=== PATIENT | male | born 1990 | race Caucasian/White ===

== ENCOUNTER 2017-03-18 09:21 | Emergency (ER) | payer OTHER ==
[~2017-03-18] VITALS: Ht 167.6 cm; Wt 81.2 kg
[2017-03-18] MEDS ORDERED: AMOX TR-K CLV1 EAC1 PO (09:29)
[2017-03-18] MEDS ORDERED: CIPRO HC OTIC S10 ML AD (09:45)
[2017-03-18] MEDS ORDERED: CIPRO500 MG PO (09:45)
== END 2017-03-18 09:54 | disposition home or self-care (01) ==
LOC: ED 09:21
DX: H60.91 Unspecified otitis externa, right ear (principal); F17.200 Nicotine dependence, unspecified, uncomplicated; Z88.6 Allergy status to analgesic agent; Z79.899 Other long term (current) drug therapy
CPT/HCPCS: 99283

== ENCOUNTER 2021-07-18 09:49 | Emergency (ER) | payer SELFPAY ==
[~2021-07-18] VITALS: Ht 167.6 cm; Wt 81.2 kg
[~2021-07-18 09:49] MED LIST: AMOX TR-K CLV1 EAC1 PO; CIPRO HC OTIC S10 ML AD; CIPRO500 MG PO
[2021-07-18] MEDS ORDERED: LEVOFLOXACIN750 MG PO (10:41)
== END 2021-07-18 11:45 | disposition home or self-care (01) ==
LOC: ED 09:49
DX: N41.9 Inflammatory disease of prostate, unspecified (principal); F17.200 Nicotine dependence, unspecified, uncomplicated; Z88.8 Allergy status to other drugs, medicaments and biological substances
CPT/HCPCS: 81001; 99284

== ENCOUNTER 2021-07-21 03:47 | Inpatient (IN) | payer OTHER ==
[~2021-07-21] VITALS: Ht 167.6 cm; Wt 92.9 kg
--- NOTE | ~2021-07-21 | DS ---
[facility] [address], [place] [address] Draft ADMISSION DATE: 07/21/2021 DISCHARGE DATE: 07/31/2021 REASON FOR ADMISSION: Perforated diverticulitis with pelvic abscess. HISTORY OF PRESENT ILLNESS: This 30-year-old white man presented to the emergency room on July 21, 2021 with recurrent and persistent pelvic pain. He had been seen in the emergency room on July 18 and thought to have prostatitis by Dr. Bhagat. He was treated with Levaquin with no clinical improvement. He re-presented to the emergency room once again on July 21 without nausea, but did have vomiting and a fair amount of abdominal pain in the left lower abdomen. A CT scan was performed confirming a pericolonic inflammatory process suggestive of acute diverticulitis despite his young age. There appeared to be pericolonic stranding and a small amount of extraluminal air. His white count was elevated to 15.7 and hematocrit 42.5 with platelets of 389,000. He is admitted for further evaluation and care. PERTINENT PHYSICAL EXAMINATION: GENERAL: Showed a pleasant white man who looked older than 30 years. VITAL SIGNS: Temperature is 97.8, pulse 115, blood pressure 120/86, O2 saturation 90% on 1 L nasal cannula. CHEST: Clear. HEART: Regular without murmur. ABDOMEN: Mildly distended and quite markedly tender in the left side, but also tender in the right lower and upper abdomen. LAB STUDIES: Are as previously noted. COVID serology was negative. HOSPITAL COURSE: He was admitted and given intravenous antibiotic cefoxitin on the basis of acute diverticulitis. His pain was rather significant and not all that much improved. Indeed, his white count increased. He was given intravenous morphine in addition to non-opiate medication. His pain persisted and in some ways worsened. He had some right-sided abdominal pain including right upper abdomen for which concern was maintained for possible biliary disease. A CT scan had been reviewed showing a normal-appearing gallbladder without distention or stones. Continued IV antibiotics were maintained. A CT scan was repeated on July 24 showing fluid in the left lower quadrant but also in interloop areas. It is deemed PATIENT NAME: LEONARDO ACOSTA DISCHARGE SUMMARY DATE OF : [birth year] REPORT #: [id number] PHYSICIAN: KORI FLORES MD PCP: PANTERA YAO MD REPORT IS CONFIDENTIAL AND NOT TO BE RELEASED WITHOUT AUTHORIZATION [facility] [address], [place] [address] Draft probable considering his lack of progress in improvement of his symptoms as process may be more advanced than initially thought. A gallbladder ultrasound had been performed which showed no sign of stones or gallbladder wall thickening, particularly. By July 25, given his lack of progress, I recommended operative intervention to include laparoscopy with probable lavage of the peritoneal cavity and placement of drain. On July 21, he underwent laparoscopy with attempts at the aforementioned approach. However, interloop adhesions were densely adherent with fibrinous peel and this was completely not amenable to a laparoscopic approach. On that basis, a laparotomy was performed allowing for drainage of a pelvic abscess. He additionally underwent sigmoid resection with end colostomy. All of this was prolonged, complicated, and difficult due to the extent of inflammation and his abdominal wall obesity. He is maintained with a nasogastric tube in the immediate postoperative period. His ostomy took a few days to fully function. TAP blocks were placed bilaterally at conclusion of operation, but were only minimally beneficial in control of his pain. He was begun on a MANUFACTURING QUALITY MANAGER with morphine which was somewhat better tolerated. He did have progressive improvement ultimately allowing for nasogastric tube removal on July 26 and removal of his Rush catheter as well. A drain placed in the pelvis showed no sign of purulent drainage. With time, his ostomy did begin to function and he was able to tolerate a regular diet. By day of discharge, he is ambulating well, tolerating a regular diet. The drain has been removed. The incision is healing well and he has good output from his ostomy. The pathology report confirmed perforated diverticulitis. No evidence of neoplasm proper. The patient is discharged to home anticipating change of his ostomy on a routine basis. Ostomy supplies include: 1. [place] [employer]afers #[id number]. 2. as well as other supplies needed for ostomy maintenance. FOLLOWUP PLAN: He is to return to see me in approximately 4 weeks or so. It will be at least three months before takedown of the colostomy would be considered. DISCHARGE MEDICATIONS: Include: 1. Cipro 500 mg p.o. b.i.d., #10. 2. Flagyl 250 mg p.o. t.i.d., #15. 3. Tylenol plain 500 mg two tablets p.o. q.6 as needed for pain, #60. 4. Pantoprazole 40 mg p.o. daily #30, refill 1. 5. Percocet 7.5/325 1-2 p.o. q.6 hours p.r.n. pain, #20. PATIENT NAME: LEONARDO ACOSTA DISCHARGE SUMMARY DATE OF : [birth year] REPORT #: [id number] PHYSICIAN: OKRI FLORES MD PCP: PANTERA YAO MD REPORT IS CONFIDENTIAL AND NOT TO BE RELEASED WITHOUT AUTHORIZATION [facility] [address] [address] Draft DISCHARGE DIAGNOSES: 1. Perforated sigmoid diverticulitis with pelvic abscess. 2. Status post laparoscopy with conversion to open sigmoid resection, drainage of pelvic abscess and end colostomy (Santi's procedure with mobilization of splenic flexure. 3. Obesity. MD NEO Mast/NANCY /[id number] cc: MD Dr. Aleida Mock Copies: VANCE HOWARD MD ~ PATIENT NAME: LEONARDO ACOSTA DISCHARGE SUMMARY DATE OF : [birth year] REPORT #: [id number] PHYSICIAN: KORI FLORES MD PCP: PANTERA YAO MD REPORT IS CONFIDENTIAL AND NOT TO BE RELEASED WITHOUT AUTHORIZATION
--- NOTE | ~2021-07-21 | OR ---
[facility] [address] [place], [place] [address] Draft DATE OF OPERATION: 07/21/2021 SURGEON: Kori Flores MD PREOPERATIVE DIAGNOSES: 1. Perforated sigmoid diverticulitis without improvement antibiotic therapy. 2. Morbid obesity. POSTOPERATIVE DIAGNOSES: 1. Pelvic abscess secondary to perforated sigmoid diverticulitis. 2. Obesity. PROCEDURES: 1. Laparoscopy with lavage of the peritoneal cavity. 2. Conversion to open laparotomy with drainage of pelvic abscess. 3. Sigmoid resection with end colostomy (prolonged, difficult (Santi's procedure). 4. Mobilization of splenic flexure. ANESTHESIA: General endotracheal, Mariya Schwartz CRNA INDICATIONS: This 30-year-old white man has had over two weeks of lower abdominal pain and spasm type symptoms. He was seen in the emergency room at approximately the 19 of July and considered to have possible prostatitis. He returned to the ER on July 21, [address] scan of the abdomen showed what was probable sigmoid diverticulitis with possible small amounts of extraluminal air. He was not systemically toxic particularly. His white count was somewhat elevated at 16,000. On the basis of his clinical appearance, he was admitted to the hospital, given intravenous antibiotics and closely monitored. He initially was improving but yesterday became more problematic with generalized findings of abdominal pain. A CT scan was performed late yesterday, which shows worsening of the inflammatory process in the rectosigmoid area. Although he did not have generalized free air, he certainly did have fluid collection throughout the abdomen. On that basis, I have recommended laparoscopy, probable lavage and placement of drain for perforated diverticulitis or other indicated procedures. The patient understands the risk of bleeding, infection, and inadequacy of a laparoscopic approach requiring open procedure and of course a possibility of sigmoid PATIENT NAME: LEONARDO ACOSTA OPERATIVE REPORT DATE OF : [birth year] REPORT #: [id number] PHYSICIAN: KORI FLORES MD PCP: NO PRIMARY CARE PHYSICIAN REPORT IS CONFIDENTIAL AND NOT TO BE RELEASED WITHOUT AUTHORIZATION [facility] [address] [place], [place] [address] Draft resection requiring ostomy either ileostomy, primary anastomosis could be performed or colostomy. Understanding all this, he wished to proceed. FINDINGS: Upon laparoscopy, he was noted to have dense fibrinous adhesions between small bowel loops. Despite very extensive efforts, full mobility of the small bowel, better visibility of the sigmoid and so forth could not be undertaken, on that basis conversion open operation was required. He was noted to have a dense phlegmonous mass of the rectosigmoid with a coil spring appearance of the rectosigmoid and a pelvic abscess. Mobility of the sigmoid was ultimately able to be accomplished allowing for Santi's procedure (sigmoid resection with end colostomy). Given his significant abdominal wall obesity, he did require mobilization of splenic flexure. Maturation of colostomy was able to be performed despite his thick abdominal wall pannus. DESCRIPTION OF PROCEDURE: The patient was brought to the operating room, given a general endotracheal anesthetic. The patient has been on meropenem antibiotic. A Rush catheter was placed. The abdomen was rather distended and obese as well as distended from underlying pathologic problem. The abdomen was clipped and prepared with a chlorhexidine solution and draped sterilely. Infraumbilical incision was made noting considerable abdominal wall edema and watery fluid. The abdomen was ultimately entered and using an open Mikki cannula technique pneumoperitoneum was achieved to a level of 14 mmHg of carbon dioxide gas. Intra-abdominal inspection showed inflammatory changes throughout the abdomen and dense fibrinous peel, particularly on the right side between small bowel loops. Epigastric port was placed and cannula replaced to that site in single hand manipulation with a grasper undertaken breaking up some loculations. Actual source of the problem was considered likely to be the sigmoid, though this was not certain. On that basis, position around the operating table was changed and a right lower quadrant 5 mm port was placed and using two hand manipulation orientation to the left lower abdomen was undertaken. There was dense fibrinous peel in this area. No sign of karissa stool egress from the colon or anything of that sort, but given his distended loops of bowel, his plethoric nature and so forth, one could not really get a good visualization of the process and finally it was deemed advisable simply to convert to open operation. The trocars were removed under direct visualization showing no sign of bleeding. The infraumbilical incision was made through the thick abdominal wall pannus, which was approximately 10-12 cm in thickness. Midline fascia was incised and the abdomen entered. Inflammatory fluid was noted throughout. A Bookwalter retractor was affixed to the table. An incision was taken cephalad when it was clear that isolation of the intra-abdominal viscera was not possible maintaining the small incision. The small bowel was packed to the right side of the abdomen after breaking up the interloop fibrinous adhesions. Clearly the offending organ was out of the sigmoid PATIENT NAME: LEONARDO ACOSTA OPERATIVE REPORT DATE OF : [birth year] REPORT #: [id number] PHYSICIAN: KORI FLORES MD PCP: NO PRIMARY CARE PHYSICIAN REPORT IS CONFIDENTIAL AND NOT TO BE RELEASED WITHOUT AUTHORIZATION [address] [place], [place] [address] Draft colon. A dense vulcanized rubber like consistency of the sigmoid mesentery was noted with fibrinous peel and egress of purulent material. This was Gram stain and cultured. Further dissection in the pelvis showed a coiled spring like configuration of the rectosigmoid with marked distortion. Using blunt dissection in the depths of the pelvis, rectum could be freed from surrounding tissue. It is quite clear that a very advanced and probably rather chronic with acute exacerbation of inflammatory process was present. Sigmoid resection with end colostomy was deemed most advisable approach, particularly given the density and inflammation of the rectum. White line of Toldt was mobilized with electrocautery. Mesenteric blood vessels of the sigmoid were secured with tonsil clamps or clips as appropriate. A normal-appearing segment of colon in the distal descending colon was transected with a VIKTOR stapling device allowing for further dissection inferiorly. So as to avoid excessive resection of rectum at this time, mindful that reanastomosis would one day be undertaken, an appropriate level of upper to mid rectum was identified and the dense inflammatory fatty layer divided with electrocautery. A VIKTOR stapling device was used to transect the rectum ultimately explanting the rectosigmoid in total. The specimen was opened on the back table and found to have no evidence of actual malignancy, only inflammatory change of the mesentery in the wall of the colon. Irrigation was undertaken in the area and the abdomen then irrigated with saline solution. This area was then temporarily packed with gauze. The patient's thick abdominal wall pannus would make passage for a colostomy rather challenging but even more so for an ileostomy. The distal segment of the rectum was not reliably free of inflammation to even do the anastomosis at this point. Formation of an end colostomy was deemed most advisable. The white line of Toldt was further incised and using blunt electrocautery dissection, the splenic flexure was mobilized allowing for a generous segment of descending colon to pass through the abdominal wall. In the left lateral abdominal wall, deemed appropriate for ostomy and portion of skin was grasped with a Shanelle clamp and incised with a 20 blade. Dissection was carried through the subcutaneous tissue. The external oblique fascia was incised as was the rectus sheath fascia. The rectus muscles were with a heavy clamp and the clamp was passed through the peritoneal cavity. The aperture for passage of the ostomy was increased in size. Ultimately, the left colon could be insinuated through the proposed ostomy site where it lay until at conclusion of procedure for maturation. Irrigation was undertaken in the anterior abdominal area and inflammatory fluid in the PATIENT NAME: LEONARDO ACOSTA OPERATIVE REPORT DATE OF : [birth year] REPORT #: [id number] PHYSICIAN: KORI FLORES MD PCP: NO PRIMARY CARE PHYSICIAN REPORT IS CONFIDENTIAL AND NOT TO BE RELEASED WITHOUT AUTHORIZATION [facility] [address] [place], [place] [address] Draft upper abdomen suctioned free after irrigation as well. Hemostasis was assured in the pelvis. Through a separate stab incision, a 7 mm flat Zack drain was placed in the pelvis and secured the skin with nylon suture. The small bowel loops were allowed to be returned to a natural anatomic position but admittedly were somewhat dilated, though only moderately thickened. The omentum was placed in the intra-abdominal contents and midline fascia was reapproximated with running bidirectional #1 PDS suture with interrupted #1 PDS suture for internal retention sutures. The subcutaneous space was irrigated fully and the skin closed with stapling device. The trocar sites were similarly closed. Attention was then turned towards maturation of the colostomy. The mucosa appeared slightly congested, but not ischemic per se. The colostomy was matured with interrupted 3-0 Vicryl suture. The index finger was passed down the ostomy through the abdominal wall, showing no sign of problematic angulation issues. An ostomy appliance was applied to that site and an Acticoat dressing applied to the midline fascia and the area of the drain exit site. The patient was ultimately given TAP blocks bilaterally by the channel executive for postoperative analgesic benefit. He was ultimately extubated, taken to recovery room in good condition having suffered no known complications. Blood loss was estimated in aggregate 200 mL. Operation was very prolonged, complicated, and difficult based on the extent of inflammation, his obesity and so forth lasting until approximately 9:00 p.m. Kori Flores MD JM/MODL /[id number] cc: Xavier Fernández MD Copies: XAVIER FERNÁNDEZ MD ~ PATIENT NAME: LEONARDO ACOSTA OPERATIVE REPORT DATE OF : [birth year] REPORT #: [id number] PHYSICIAN: KORI FLORES MD PCP: NO PRIMARY CARE PHYSICIAN REPORT IS CONFIDENTIAL AND NOT TO BE RELEASED WITHOUT AUTHORIZATION
[~2021-07-21 03:47] MED LIST changes: +LEVOFLOXACIN750 MG PO
--- OUTSIDE RECORDS SUMMARY | 2021-07-21 03:54 | XMS ---
PreManage Notification: LEONARDO ACOSTA Security People Greeter Events No recent Security Events currently on file CRITERIA MET - [facility] - 2 Visits in 30 Days CARE PROVIDERS There are no care providers on record at this time. Jj has no Care Guidelines for this patient. Z[facility] (12 MO.) [facility] NOTE: Visits indicate total known visits. ED/C VISIT TRACKING (12 MO.) 07/21/2021 03:[address] [facility] [place] TYPE: Emergency COMPLAINT: - ABD PAIN 07/18/2021 09:[address] [facility] [place] TYPE: Emergency COMPLAINT: - POSS UTI DIAGNOSES: - Allergy status to other drugs, medicaments and biological substances - Inflammatory disease of prostate, unspecified - Allergy status to narcotic agent - Nicotine dependence, unspecified, uncomplicated - Lower abdominal pain, unspecified INPATIENT VISIT TRACKING (12 MO.) No inpatient visits to display in this time frame [email or web address]
--- NOTE | 2021-07-21 07:20 | NUR ---
0650 pt ARRIVED TO ROOM. AMBULATED FROM STRETCHER TO BED. URINATED AT THE BEDSIDE. SAMPLE SENT. CLEAR YELLOW URINE. INTAKE COMPLETED. pt PROVIDED WITH ORAL SWABS. IVF AND IV ANTIBIOTICS COMPLETED, SL IV. PAIN 12/22. ORIENTED TO ROOM. CALL LIGHT WITHIN REACH.
--- NOTE | 2021-07-21 07:30 | NUR ---
this rn received report from pratibha pierce and manuel pierce. pt states that he has pain 6/10 but is thirsty, this rn does not have an order for diet at this time.
--- NOTE | 2021-07-21 07:40 | NUR ---
verbal report given to dayshift stan recinos at bedside. pt reports increased pain, stan recinos to complete remaining portion of admission and hang iv fluids, pain meds, ect. call light in reach.
--- NOTE | 2021-07-21 08:30 | NUR ---
THIS RN IN PTS ROOM TO CHECK ON PT AND DO MORNING ASSESSMENT. PT STATES THAT HE IS HAVING 7/10 PAIN IN HIS ABDOMEN. THIS RN PROVIDED PT WITH 0.6MG DILUADID AT THIS TIME AND STARTED PTS FLUIDS. THIS RN ALSO DISCUSSED PLAN OF DAY WITH PT, PT STATES HE IS AGREEABLE TO THIS PLAN OF NOW.
--- NOTE | 2021-07-21 10:00 | NUR ---
THIS RN LEFT A VOICEMAIL FOR ABOUT PTS CAMILA MEDS
[2021-07-21] MEDS ORDERED: LEVOFLOXACIN750 MG PO (10:12)
--- NOTE | 2021-07-21 10:12 | NUR ---
MED REC COMPLETED BY PHARMACY
--- NOTE | 2021-07-21 10:50 | NUR ---
THIS RN PLACED PT IN 1L NC AT THIS TIME DUE TO PTS SATS RANGING 88-90% ON ROOM AIR DUE TO DILUADID PAIN MEDS- PT DENIES THAT HE SMOKES. THIS RN PROVIDED PT WITH 0.6MG DILUADID FOR PAIN. PT STATES THAT HE HAD A SMALL BM OVER NIGHT PRIOR TO COMING IN BUT PRIOR TO THAT HE HAD NOT HAD ANOTHER IN ABOUT A WEEK. THIS RN ALSO RECEIVED ORDERES FROM TO GIVE PT DILUADID 1MG [id number] AND IV TYLENOL 1GM Q 6HRS.
--- NOTE | 2021-07-21 10:55 | NUR ---
Spoke with Ben. He lives in [place] with his roommate. He does not have a pcp or any insurance. Works at [employer]. Does not use any DME. Called and asked if Mariaelena who assists with OHP would visit with pt to see if he would qualify. Pt states he has been seen at Urgent care and would like a pcp from there. Called and left a message for [facility] and let them know I will send a chart. Asked if they can schedule this pt for and appt to establish care. Chart faxed. Pt denies any needs at this time. Painful and Rn gave dilauded and pt drowsy. Will or on insur- ance and pcp.
--- NOTE | 2021-07-21 12:10 | NUR ---
THIS RN IN PTS ROOM PER PT REQUEST. PT STATES THAT HE IS FEELING HOT. THIS RN TOOKS PTS TEMP- 97.8. PT WAS PROVIDED A FAN EARLIER IN SHIFT. THIS RN PROVIDE DPT WITH COLD WASHCLOTHS AND AN ICE PACK FOR COMFORT. PT STATES THIS IS IMPROVING
--- NOTE | 2021-07-21 15:30 | NUR ---
THIS RN IN PTS ROOM TO CHECK ON PT. PT IN POSITION AND STATING THAT HE JUST WANTS TO SLEEP AND GET COMFORTABLE. THIS RN ORGINALLY PROVIDED PT WITH 4MG MORPHINE, BUT AFTER WAITING 15MINS THIS DID NOT HELP PT, THIS RN PROVIDED PT WITH ANOTHER 4MG OF MORPHINE FOR COMFORT. THIS RN ALSO HAD PT STAND UP, TAKE DEEP BREATHS AND SIT IN CHAIR FOR 90MINS.
--- NOTE | 2021-07-21 16:50 | NUR ---
THIS RN IN PTS ROOM TO CHECK ON PT. PT STATES THAT HE IS NAUSEOUS AND IS SALIVATING AND SPITTING. THIS RN PROVIDED PT WITH 4MG ZOFRAN
--- NOTE | 2021-07-21 17:40 | NUR ---
THIS RN PROVIDED PT WITH ANOTHER 4MG OF MORPHINE FOR PTS IMPROVED PAIN OF 5/10. PT APPEARS TO BE BREATHING BETTER AND APPEARS MORE COMFORTABLE. CALL LIGHT WTIHIN REACH AND CLEAR LIQUID TRAY PROVIDED PT.
--- NOTE | 2021-07-21 18:23 | NUR ---
THIS RN LEFT A VOICEMAIL FOR MD. NEED TO DISCUSS PTS FEVER
--- NOTE | 2021-07-21 19:35 | NUR ---
SHIFT REPORT RECEIVED FROM DAYSHIFT ZOEY DISLA AT BEDSIDE. pt AWAKE AND RESTING IN BED. IV FLUIDS INFUSING DIRECTED, IV SITE WNL. 2LNC IN PLACE, RR EVEN AND UNLABORED. NO ADDITIONAL NEEDS VERBALIZED. CALL LIGHT IN REACH.
--- NOTE | 2021-07-21 20:10 | NUR ---
DR FLORES CALLED TO RETURN PHONE CALL FROM EARLIER ON DAYSHIFT FROM [facility]OE[facility] DISLA. MD FLORES MADE AWARE OF LAST TAKEN TEMP ON DAYSHIFT OF 100.9. HR TACHY 107-112. OVERALL UPDATE ON pt PROVIDED, NO NEW ORDERS RECEIVED AT THIS TIME.
--- NOTE | 2021-07-21 21:13 | NUR ---
PT CALLED FOR PAIN MEDS. ADMINISTERED 4MG IV MORPHINE FOR ABD PAIN. PROVIDED FRESH ICEPACK AND ICECHIPS. PT REPORTS NAUSEA AND STATES OK TO WAIT UNTIL NEXT ZOFRAN DOSE DUE. WILL NOTIFY PRIMARY RN, EMESIS BAG AT BEDSIDE AND PT DENIES FURTHER NEEDS AT THIS TIME. CALL LIGHT IS CLOSE.
--- NOTE | 2021-07-21 21:45 | NUR ---
ASSESSMENT COMPLETE, SCHEDULED MEDS GIVEN (SEE EMAR). IV SITE WNL, FLUSHES EASILY. FLUIDS REMAIN INFUSING DIRECTED. pt REPORTS PAIN IS IMPROVED, RATES 4-5/10 AND VERIFIES PAIN IS TOLERABLE AT THIS TIME. pt REPORTS SOME NAUSEA, LIKELY R/T RECENT PAIN MEDICATION ADMINISTRATION. UNABLE TO GIVE NAUSEA MEDICATION AT THIS TIME, pt VERBALIZES UNDERSTANDING AND IS OKAY WITH RECIEVING NAUSEA MEDICATION WHEN AVAILABLE, NO FURTHER NEEDS. CALL LIGHT IN REACH.
--- NOTE | 2021-07-21 23:30 | NUR ---
ROUNDED ON pt, pt AWAKE AND RESTING IN BED. REPORTS SOME NAUSEA, BUT DENIES NEED FOR NAUSEA MEDICATION AT THIS TIME. pt INSTRUCTED TO CALL FORMING DEPARTMENT SUPERVISOR IF NAUSEA MEDICATION OR OTHER NEEDS ARE NEEDED. pt VERBALIZED UNDERSTANDING. CALL LIGHT IN REACH.
--- NOTE | 2021-07-22 00:12 | NUR ---
PT CALLED NURSES STATION TO REPORT NAUSEA. THIS RN INTO ADMINISTER 8MG IV ZOFRAN AT THIS TIME. PT HAS NO OTHER REQUESTS AT THIS TIME. HE DID NOT HAVE EMESIS.
--- NOTE | 2021-07-22 02:20 | NUR ---
ASSESSMENT COMPLETE, NEW BAG IV FLUIDS HUNG AND INFUSING DIRECTED. IV SITE WNL. PRN PAIN MEDICATION GIVEN FOR 7/10 PAIN, pt UP SBA FROM BED TO CHAIR. pt VERY SLOW MOVING AND GROANS TO SELF. pt APPEARS MORE COMFORTABLE HOWEVER, AFTER MOVING TO CHAIR. BELONGINGS IN REACH AND FRESH WATER AT BEDSIDE. pt DENIES NAUSEA, DENIES PASSING GAS. BOWEL TONES ACTIVE, ABD FIRM AND TENDER TO THE TOUCH. ICE IN PLACE. CALL LIGHT IN REACH.
--- NOTE | 2021-07-22 04:40 | NUR ---
prn pain medication given for 8/10 abd pain, ice already in place. pt reports short lasting relief from pain medication then return of pain. pt states, "it feels like it's making it worse, like the other stuff did". pt referring to previously given dilaudid. pt educated on pain management and reassured. pt encouraged to ambulate in hallway once pain is improved. iv site wnl. no further needs, vss and i&o's complete. call light in reach.
--- NOTE | 2021-07-22 06:40 | NUR ---
scheduled iv abx infusing as directed. this rn spoke with koko from telepharmacy earier in shift, confirmed per telepharmacy ordered rate and dose of meropenem wnl. iv site wnl. scheduled tylenol also given, see emar. fresh ice pack to abd provided. call light in reach. pt returned from bathroom, no bm noted. pt denies passing gas.
--- NOTE | 2021-07-22 08:30 | NUR ---
patient in the bed sitting up. call light within reach. patient was pale and sweaty, this PANTOGRAPH I ENGRAVER asked if he was in pain and/or nausious. the patient said yes to both, the RN was notified. warm washcloth was given. no further needs at this time.
--- NOTE | 2021-07-22 08:40 | NUR ---
Alerted by REHABILITATION CASE COORDINATOR that patient having pain, nausea. PRN 4mg morphine and 4mg zofran administered. Pt states 7/10 pain, grimacing and holding stomach, barely able to move self from bed to chair. Pt ambulates slowly and hunched over. Bowel tones active, ABD distended, firm, tender. On room air and 96% at this time. IVF infusing WNL. Pt states unable to tolerate clear liquids currently.Sitting up in chair, made plan to walk in hallway.
--- NOTE | 2021-07-22 09:30 | NUR ---
patient is sitting in the chair. he got up to use the bathroom. call light with in reach. patient asked about nausea and pain meds.
--- NOTE | 2021-07-22 09:45 | NUR ---
patient got up and walked the halls with this MEMORY CARE DIRECTOR. patient walked approxametly 10ft then turned around due to pain and nausea. patient is now sitting in the chair with the call light with in reach.
--- NOTE | 2021-07-22 10:44 | NUR ---
IV pump alarming, IV ABX complete. Pt in bed, states "walked a bit" but now "not getting out of bed until the doctor gets here". He c/o continued nausea and pain. Allowed to rest at this time, call light in reach
--- NOTE | 2021-07-22 12:40 | NUR ---
Pt calls and requests pain medication, c/o 03/24 pain and consistently moaning, grimacing and holding stomach. Significant pain endorses with palpation to RLQ and diffuse lower ABD pain. 8mg morphine given at this time. Ice water provided. IVF infusing.
--- NOTE | 2021-07-22 13:57 | NUR ---
Pt states cannot take PO tylenol at this time d/t nausea, Dr Gamble phoned and received 1 time dose of Ofirmev. Read back to confirm order
--- NOTE | 2021-07-22 14:15 | NUR ---
patient walked down the jauregui with this HARNESS PULLER. the patient was holding onto his IV pole. he walked approxamatly 10ft then turned around due to nausea and pain.
--- NOTE | 2021-07-22 14:30 | NUR ---
Pt set up with morphine WEIGHT REDUCTION SPECIALIST per order. Pt educated extensively about WEIGHT REDUCTION SPECIALIST usage, he verbalizes understanding and has no questions. Assessment complete. New IV started in R hand. IV ABX and fluid infusing WNL.
--- NOTE | 2021-07-22 16:00 | NUR ---
patient in the bed resting. states he wants to wait on the shower now. his water was refreshed. call light with in reach no further needs at this time.
--- NOTE | 2021-07-22 17:28 | NUR ---
PATIENT SITTING UP IN THE BED EATING/DRINKING HIS CLEAR LIQUID TRAY. VITAL DONE. CALL LIGHT WITHIN REACH. NO FURTHER NEEDS AT THIS TIME.
--- NOTE | 2021-07-22 17:52 | NUR ---
Pt states only had "1 sip" of cranberry juice. US tech called to do imaging. NPO sign on door and pt reeducated about fluid intake, will allow clears post-imaging
--- NOTE | 2021-07-22 19:25 | NUR ---
SHIFT REPORT RECEIVED FROM DAYSHIFT ZOEY IVERSON AT BEDSIDE. pt AWAKE AND RESTING IN BED, OCCASSIONAL MOANING NOTED, pt EDUCATED ON PAIN MANAGEMENT AND TO PUSH POWER TOOL REPAIRER PUMP BUTTON IF PAIN WORSENS. CALL LIGHT AND POWER TOOL REPAIRER BUTTON BOTH IN REACH. NO ADDITIONAL NEEDS VERBALIZED.
--- NOTE | 2021-07-22 19:30 | NUR ---
in to assist pt to the toilet with iv pole, pt voided, back to bed, pt family brought in broth for pt, labled and in fridge for pt, ice pack, ice for gatorade, and fresh icec water provided to pt, no further needs at this time
--- NOTE | 2021-07-22 21:00 | NUR ---
CHAIR MAKER PUMP SETTINGS VERIFIED BY THIS RN AND SECOND RN DARRIAN. pt RESTING IN BED, 2LNC REMAINS IN PLACE. CPOX AT BEDSIDE. NO ADDITIONAL NEEDS VERBALIZED, CALL LIGHT IN REACH.
--- NOTE | 2021-07-22 22:43 | NUR ---
ASSESSMENT COMPLETE, SCHEDULED MEDS GIVEN (SEE EMAR). pt REPORTS 6/10 PAIN. pt VERBALIZES FRUSTRATION REGARDING HOSPITALIZATION AND STATES, "I JUST WANT THE DOCTOR TO TELL ME WHEN I CAN GO HOME". pt EDUCATED AND UPDATED ON POC THIS SHIFT AND THAT pt WILL BE UPDATED ONCE IMAGING RESULTS ARE KNOWN. pt UP FROM BED SBA TO CHAIR. TENDERNESS NOTED TO RIGHT MID TO LOWER QUADRANT. pt HIGHLY SENSITIVE TO TOUCH WITH ABD, FIRMNESS NOTED. AGATE SETTER PUMP BUTTON AND CALL LIGHT BOTH IN REACH, ICE PACK PROVIDED TO ABD. pt REPORTS SOME PAIN IN RIGHT HAND IV, APPEARS POSITIONAL WHEN FLEXING WRIST. IV SITE WNL, BRISK BLOOD RETURN NOTED. FLSUHES EASILY. IV ABX INFUSING DIRECTED. NO FURTHER NEEDS, CALL LIGHT IN REACH.
--- NOTE | 2021-07-22 23:30 | NUR ---
DR FLORES ON PHONE AND REPORTS INABILITY TO VIEW ABD US TAKEN ON DAYSHIFT/SHIFT CHANGE TODAY. THIS RN SPOKE TO CARROLL FROM IMAGING, PER CARROLL, ORDER FOR THE ABD US WAS NOT ORDERED STAT AND BECUASE IT WAS AFTER HOURS, IMAGING RESULTS WILL NOT BE REVIEWED UNTIL AM. DR FLORES MADE AWARE OF THE ABOVE INFORMATION. DR FLORES ALSO MADE AWARE OF pt'S TENDERNESS TO RIGHT MID TO LOWER ABD. WELL HR ONE TEENS TO LOW 120'S. DR FLORES TO PLACE NEW ORDERS FOR IV TYLENOL, TELEPHONE ORDER READ BACK TO DC CURRENT ORDERS FOR PO TYLENOL.
--- NOTE | 2021-07-23 00:02 | NUR ---
CARROLL FROM IMAGING CALLED THIS RN STATION AND REPORTED THAT ABD US RESULTS ARE AVAILABLE. RESULTS READ VIA PHONE BY THIS RN TO DR FLORES. PER MD FLORES, TELEPHONE ORDERS READ BACK TO DC RECENTLY ORDERED AM ABD US FOR 07/23/20. GAS PUMPING STATION SUPERVISOR UPDATED AND MADE AWARE. pt ALSO MADE AWARE OF IMAGING RESULTS.
--- NOTE | 2021-07-23 01:30 | NUR ---
CALL LIGHT ANSWERED, PUMP ALARMING. ISSUE RESOLVED. IV SITES X2 WNL. NEW BAG IV FLUIDS HUNG AND INFUSING DIRECTED. NO FURTHER NEEDS, CALL LIGHT IN REACH. pt REMAINED RESTING IN BED WITH EYES CLOSED. RR EVEN AND UNLABORED, SPO2 MID TO UPPER 90'S ON 2LNC. HR 90'S. SORTING MACHINE ATTENDANT BUTTON ALSO REMAINS IN REACH.
--- NOTE | 2021-07-23 02:24 | NUR ---
web architect pump alarming, new web architect morphine vial programmed. settings verified with second rn bryan. pt reports pain /10. cpox in place, hr and spo2 both upper 90's. 2lnc in place. rr 17, even and unlabored. call light in reach.
--- NOTE | 2021-07-23 03:20 | NUR ---
prn nausea medication given, see emar. no further needs, call light in reach.
--- NOTE | 2021-07-23 04:20 | NUR ---
SCHEDULED IV TYLENOL GIVEN, SEE EMAR. pt REPORTS PAIN IS "BETTER". NOW RATES 4.5-5/10. IV SITES X2 WNL. NO FURTHER NEEDS VERBALIZED. CALL LIGHT IN REACH.
--- NOTE | 2021-07-23 06:58 | NUR ---
cap jewel plate assembler pump cleared. pt reports 6/10 pain, call light and cap jewel plate assembler pump both in reach. iv abx infusing as directed, iv sites x2 wnl. no further needs. call light in reach.
--- NOTE | 2021-07-23 07:25 | NUR ---
Report received from Soni GREER. Pt resting in bed with eyes closed, even and unlabored respirations. Awakens to voice. CPOX in place, pt currently on RA. Morphine ENVIRONMENTAL FIELD SERVICES TECHNICIAN pump unused since last syringe placement. IVF infusing WNL. Pt reports no pain or needs at this time. Call light in reach
--- NOTE | 2021-07-23 07:57 | NUR ---
Pt provided with ice water, up to chair, no needs at this time
--- NOTE | 2021-07-23 11:06 | NUR ---
IVF infusing WNL after patient shower. Morphine BAGGAGE CHECKER in place, CPOX, pt on room air. Pt walked in hallways and states it "helped with stomach pain a bit, still not able to have a bowel movement" pt encouraged to ambulate. Tolerating clear liquids at this time.
--- NOTE | 2021-07-23 12:00 | NUR ---
New LEAD MANUFACTURING ENGINEER syringe entered and verified with second RN. Pt tolerating clear liquids at this time, strained broth from home brought chicken soup. Ice pack provided. On room air. Brother at bedside. CPOX in place, SPO2 98%.
--- NOTE | 2021-07-23 12:30 | NUR ---
Pt up walking in hallway with IV pole, independent. States no needs at this time.
--- NOTE | 2021-07-23 14:51 | NUR ---
In room to hang IV ABX, pt states that he feels "abandoned down here" at end of hallway, that he feels staff "snapped at him" and he is not having needs met. This RN discusses extensively plan of care, pt's needs, solutions. He is agreeable and states that he is "mostly just in pain", encouraged to utilize morphine WOOD CALKER as it is readily available to him. Room tidied, all tubing organized, personal belonings close, fresh water provided. Discussed with charge gang weigher moving patient to closer room, will attempt once room is available. Pt states no needs at this time. Reminded he can always ask for RN with needs. He verbalizes understanding.
--- NOTE | 2021-07-23 17:05 | NUR ---
Pt moved from room 118 to room 123 to be closer to nurses station. He reports having little relief from pain, rates it 6/10 despite scheduled Ofirmev and morphine CARBON BRUSHER ASSEMBLER. He is agitated and anxious at this time. He refuses moving to bed or elevating feet, noted to be falling asleep in chair. He reports "knowing the pain will be there" if lying down. Feet elevated in chair after being warned about falling out of the chair if he continues to doze off. Call light in reach. IVF infusing. On 2L NC at this time, CPOX, 96%.
--- NOTE | 2021-07-23 19:00 | NUR ---
SHIFT REPORT RECEIVED FROM [facility] ZOEY IVERSON AT [facility]. pt RESTING IN BED, AWAKE AND ON RA. RR EVEN AND UNLABORED. NO DISTRESS NOTED. BREAKFAST BAR ATTENDANT BUTTON AND CALL LIGHT BOTH IN REACH. IV FLUIDS INFUSING DIRECTED, NO NEEDS VERBALIZED.
--- NOTE | 2021-07-23 20:27 | NUR ---
pt SLEEPING, AWAKENS TO VOICE EASILY. VSS. SPO2 WNL WITH 2L OXYGEN BY NC IN PLACE. pt IS DROWSY, ABLE TO CONVERSE WITH RN. BANQUET CHEF PUMP SETTINGS VERIFIED WITH PRIMARY RN HYACINTH. PRIMARY RN REMAINS IN ROOM.
--- NOTE | 2021-07-23 20:32 | NUR ---
IN ROOM, SPO2 ALARMING. RT VIJI ALREADY IN ROOM. PER RT VIJI, SPO2 75% ON RA pt DROWSY AND SOMEWHAT DIFFICULT TO AROUSE. UPON ENTERING ROOM, SPO2 UPPER 80'S AND QUICKLY SUSTAINING IN UPPER 90'S, HR WNL. pt AWAKE, RR EVEN AND UNLABORED. pt ALREADY HAS A FLAT AFFECT AND IS QUIET IN DEMEANOR. PUPILS ROUND, EQUAL AND REACTIVE TO LIGHT. COMMERCIAL DEVELOPMENT MANAGER BAILEY ALSO IN ROOM. pt INTERACTIVE WITH ASSISTANT MEN'S SOCCER COACH, STATING, "WELL I HAVEN'T BEEN SLEEPING FOR THREE DAYS". pt DOES NOT RATE PAIN AT THIS TIME, DENIES NAUSEA. pt CONTINUES TO TALK AND INTERACT WITH ASSISTANT MEN'S SOCCER COACH, EXPLAINING HOW HIS DAY WENT. VSS, CPOX REMAINS IN PLACE. IV SITES X2 WNL. IV DRESSING TO RIGHT HAND REDRESSED. I&O'S COMPLETE. RR EVEN AND UNLABORED, RATE WNL. WILL CONTINUE TO MONITOR. DISCUSSED WITH COMMERCIAL DEVELOPMENT MANAGER BAILEY, NO NEED TO CALL MD AT THIS TIME. DROSWINESS APPEARS R/T BEING SLEEP DRPRIVED RATHER THAN FROM HUMAN ANATOMY TEACHER PUMP. HUMAN ANATOMY TEACHER PUMP CLEARED FROM PEVIOUS SHIFT AND PUMP SETTINGS VERIFIED WITH SECOND ZOEY STRINGER. CALL LIGHT IN REACH.
--- NOTE | 2021-07-23 21:14 | NUR ---
CALL LIGHT ANSWERED. OXYGEN TUBING TWISTED. pt HAS DISCONNECTED CPOX. RECONNECTED, SPO2 94% WITH 2L OXYGEN BY NC IN PLACE. pt C/O NAUSEA, UNABLE TO EAT BROTH. PRN NAUSEA MEDICATION ADMINISTERED. PRIMARY RN NOTIFIED.
--- NOTE | 2021-07-23 22:32 | NUR ---
CALL LIGHT ANSWERED. pt SPILLED BROTH IN SLEEP. ASSISTED TO CLEAN. SCRUB PANTS PROVIDED. pt C/O PAIN, PUSHING TRANSPLANT NURSE PRACTITIONER PUMP BUTTON AT THIS TIME. DRAW SHEET CHANGED. pt BACK IN BED. CALL LIGHT IN REACH. CPOX HOOKED BACK UP pt DISCONNECTED, INSTRUCTED TO LEAVE PLUGGED IN. pt VERBALIZES UNDERSTANDING.
--- NOTE | 2021-07-23 23:00 | NUR ---
SCHEDULED TYLENOL AND IV ABX GIVEN (SEE EMAR). IV SITE TO RIGHT HAND PAINFUL WHEN FLUSHED, SITE REMOVED AND CATHETER TIP INTACT. NEW IV TO LEFT AC, 20G. IV SITE WNL. pt UP TO VOID AND REPORTS PASSING GAS. NO BM. CALL LIGHT AND SQUARING MACHINE OPERATOR BUTTON IN REACH, NO FURTHER NEEDS.
--- NOTE | 2021-07-24 00:49 | NUR ---
pt RESTING IN BED, EYES CLOSED. SNORING NOTED, RR EVEN AND UNLABORED. RR 14-16. SPO2 97%, 2LNC. HR 87. PER SKI MAKER PUMP, TOTAL OF 12MG GIVEN SINCE PUMP CLEARED AT START OF SHIFT. CALL LIGHT IN REACH.
--- NOTE | 2021-07-24 01:44 | NUR ---
CALL LIGHT ANSWERED, NEW LIMO DRIVER CARTRIDGE IN PLACE. SETTINGS VERIFIED BY THIS RN AND ZOEY STRINGER. pt REPORTS PAIN IS TOLERABLE 4.5/10. ASSESSMENT COMPLETE, NO ACUTE CHANGES. CALL LIGHT IN REACH.
--- NOTE | 2021-07-24 03:20 | NUR ---
RR REMAINS 14-16, AUDIBLE SNRING HEARD. RR EVEN AND UNLABORED, NO DISTRESS NOTED. pt APPEARS RELAXED AND COMFORTABLE. pt LAYING ON BACK, SLIGHTLY ON LEFT SIDE WITH HOB ELEVATED TO APPROX 30-45 DEGREES. IV FLUIDS INFUSING DIRECTED. BIOCHEMISTRY TECHNOLOGIST BUTTON AND CALL LIGHT IN REACH. CPOX REMAINS IN PLACE, 2LNC ON. SPO2 97%, HR UPPER 80'S.
--- NOTE | 2021-07-24 04:44 | NUR ---
SCHEDULED TYLENOL GIVEN, SEE EMAR. WHEN ASKED HOW pt WAS DOING, pt STATES, "SURPRISINGLY GOOD RIGHT NOW". NO FURTHER NEEDS, IV SITES X2 WNL. SAMANTHA RIVERA IN ROOM TO COMPLETE VS.
--- NOTE | 2021-07-24 06:27 | NUR ---
SCHEDULED IV ABX INFUSING DIRECTED, IV SITE X2 WNL. CALL LIGHT IN REACH. pt UNABLE TO FIND PHONE SHALE PROCESSING TECHNICIAN, pt MOVED FROM ROOM 118 TO 123. HOSPITAL SHALE PROCESSING TECHNICIAN PROVIDED UNTIL PERSONAL SHALE PROCESSING TECHNICIAN IS LOCATED.
--- NOTE | 2021-07-24 08:13 | NUR ---
IN TO DO MORNING ROUNDS ON PATIENT. PATIENT WAS UP AMBULATING IN ROOM IND. PATIENT REFUSED AM CARE AND TO SIT IN CHAIR FOR BREAKFAST. PATIENT STATES "I HAVE BEEN UP SINCE 5AM AND I CAN'T EAT ANY OF THE FOOD HERE BECAUSE IT'S ALL BAD." PATIENT THEN TO BED. CALL LIGHT IN REACH. NO FURTHER NEEDS AT THIS TIME.
--- NOTE | 2021-07-24 08:21 | NUR ---
in chair, O2 2LNC, IVF infusing w/o problmes, no c/o pain or side effects to abx. Up to br with 1PA. voided, back to bed,coop with assessments, flat affect
--- NOTE | 2021-07-24 10:16 | NUR ---
PATIENT IN BED RESTING AT THIS TIME. RN IN ROOM AT THIS TIME. VITALS AND I&O'S CHARTED. CALL LIGHT IN REACH. NO FURTHER NEEDS AT THIS TIME.
--- NOTE | 2021-07-24 10:24 | NUR ---
Awake, playing with his phone, on 2LNC, denies SOB, cpox in place at bedside. FOUNTAIN ROLLER ASSEMBLER morphine, IVF infusing, stated comfortable, FOUNTAIN ROLLER ASSEMBLER not effective at times, call light at bedside
--- NOTE | 2021-07-24 13:30 | NUR ---
Pt medicated with 8mg zofran. Pt requests RN to look at both IV sites, WNL. Pt states he is still in pain despite pain medications, primary RN notified. Provided with ice, ice pack, call light in reach
--- NOTE | 2021-07-24 14:22 | NUR ---
in bed, o2 2lnc, cpox at bedside, no sob. no further c/o n/v. using hotel baggage handler with fair to mild pain relief, no loose stooks. ivf infusing w/o problems, tolerating liquids
--- NOTE | 2021-07-24 16:12 | NUR ---
dr macdonald in room assessing pt. pt trying to reposition self, encouraged to reposition self
--- NOTE | 2021-07-24 16:13 | NUR ---
Irritable mood, upset over having been toughed in abd by . reassured,
--- NOTE | 2021-07-24 16:24 | NUR ---
pt still irritable mood, took O2 off, desatted to 80%, O2 repositioned back on 2LNC, cpox at bedside, sats back to 90-93%,
--- NOTE | 2021-07-24 16:46 | NUR ---
Spoke with Ben and he continues to complain of pain. He was able to speak with Mariaelena about OHP, but did not know his financial info so they did not proceed. Pt is upset as he feels staff are not taking his pain seriously. Pt has a supreme court justice pump in place and is receiving IV tylenol. Pt was seen by Dr. Gamble a few minutes ago. Discussed with pt there can be a point where people receive too much pain meds, so the DrBrian will not cont. to increase his pain medication. Pt denies relief with alternatives such as ice or hot packs. He states the did discuss possible surgery. Rn in room attempting to make pt comfortable. Pt stating he would "rather be than feel like this."
--- NOTE | 2021-07-24 16:50 | NUR ---
pt placed NPO as per verbal order by Dr Chavarria. Pt informed of gastrographin
--- NOTE | 2021-07-24 17:05 | NUR ---
first dose of gastrographin give, explained to pt, very irritable, semi receptive to information given. c/o abd pain, using BILINGUAL OFFICE ASSISTANT, takes cpox connector off, very often. aware of NPO status
--- NOTE | 2021-07-24 17:30 | HP ---
[facility] [address], [place] [address] Signed ADMISSION DATE: 07/21/2021 REASON FOR ADMISSION: Acute sigmoid diverticulitis. HISTORY OF PRESENT ILLNESS: This 30-year-old white man is from [place], lives in [place] and works locally at the [employer]. He is unmarried and has no girlfriend. He does have family in [place]. He presented to the emergency room late last night, was evaluated by Dr. Howard and found to likely have acute diverticulitis. This is notable because the patient had nine days of worsening pain in the lower abdomen and lower back as well as in the upper abdomen. He had been seen on July 18 and thought to have prostatitis and was treated with Levaquin, but had no improvement. His treating physician at that time was Dr. Bhagat. The patient has had no vomiting, but has had nausea. He has abdominal pain and it is worsened with coughing or movement and sometimes with urination. He has had no pneumaturia and no fever or chills. He underwent a CT scan at approximately 04:20 a.m. today, which confirmed pericolonic stranding highly suggestive of acute diverticulitis despite his young age. His lungs appeared clear as did the liver. The gallbladder was visualized as normal. Both kidneys were normal. No sign of bowel obstruction in any way. There appeared to be pericolonic stranding and I have confirmed this on my own evaluation. There is some silas-colonic air bubbles suggestive of a silas-colic abscess or similar problem. There is little doubt that a significant inflammatory process of this sigmoid and rectosigmoid is noted. No doubt this accounts for the previous diagnosis of prostatitis. Of note, his urinalysis was normal upon presentation today. Additionally, his serologies were negative for COVID and other pathogens. His white count was elevated to 15.7 with hematocrit of 42.4 and platelets of 389,000. The patient has never had abdominal surgery in the past. In general, he is in good health. REVIEW OF SYSTEMS: He denies any shortness of breath or chest pain. He does have generalized abdominal pain, most dominantly in the left lower quadrant, but also in the right upper abdomen as well. Electronically Signed By: KORI FLORES MD 07/24/21 1730 PATIENT NAME: LEONARDO ACOSTA HISTORY AND PHYSICAL DATE OF : [birth year] REPORT #: [id number] PHYSICIAN: KORI FLORES MD PCP: NO PRIMARY CARE PHYSICIAN REPORT IS CONFIDENTIAL AND NOT TO BE RELEASED WITHOUT AUTHORIZATION [facility] [address], [place] [address] Signed PHYSICAL EXAMINATION: GENERAL: This is a pleasant white man, who looks a bit older than 30 years. VITAL SIGNS: Temperature is 97.8, pulse 115, blood pressure 120/86, and O2 saturation is 94% on 1 L nasal cannula and 89% on room air. NECK: Trachea is midline. Mucous membranes are quite dry. CHEST: Clear, without wheeze or rhonchi. HEART: Regular without murmur. ABDOMEN: Mildly distended and quite markedly tender on the left side, but also tender in the right upper abdomen and lower abdomen as well. EXTREMITIES: Show no clubbing, cyanosis, or edema. LABORATORY DATA: Labs study shows white count of 15.7, hematocrit 42.4, and platelets are 389,000. Chem-profile normal, creatinine 0.83, globulin elevated at 4.0. Urinalysis was essentially normal. COVID serology negative. ASSESSMENT AND PLAN: The patient has acute sigmoid diverticulitis, which was interpreted previously as prostatitis. He does have some pericolic air bubbles suggesting the advanced nature of this process. There is no well-formed abscess to my examination and certainly no generalized free air. I discussed this with the patient in detail with the use of illustrations and so on. Our plan at this point is IV antibiotics (the patient started on ceftriaxone and Flagyl in the ER) as well as bowel rest and additional fluid administration intravenously. Ultimately, he will require colonoscopy and hopeful that his symptoms will improve over time allowing for resolution of his symptoms without the need for other operative interventions. He concurs with this approach. MD NEO Mast/MARTINEZL /[id number] cc: Vance Howard MD Electronically Signed By: KORI FLORES MD 07/24/21 1730 PATIENT NAME: LEONARDO ACOSTA HISTORY AND PHYSICAL DATE OF : [birth year] REPORT #: [id number] PHYSICIAN: KORI FLORES MD PCP: NO PRIMARY CARE PHYSICIAN REPORT IS CONFIDENTIAL AND NOT TO BE RELEASED WITHOUT AUTHORIZATION [address] [address] Signed Copies: VANCE HOWARD MD ~ Electronically Signed By: KORI FLORES MD 07/24/21 1730 PATIENT NAME: LEONARDO ACOSTA HISTORY AND PHYSICAL DATE OF : [birth year] REPORT #: [id number] PHYSICIAN: KORI FLORES MD PCP: NO PRIMARY CARE PHYSICIAN REPORT IS CONFIDENTIAL AND NOT TO BE RELEASED WITHOUT AUTHORIZATION
--- NOTE | 2021-07-24 17:55 | NUR ---
SECOND DOSE OF GASTROGRAFIN GIVEN BY NURSE ASSESSOR. SLURRY PLANT OPERATOR CARTRIDGE CHANGED.
--- NOTE | 2021-07-24 18:10 | NUR ---
PT CALL LIGHT ON. PT REPORTS IV PUMP IS ALARMING. THIS RN TO ROOM. IV ABX INFUSION COMPLETE. LEFT AC IV FLUSHED AND SALINE LOCKED PER PROTCOL, ALCOHOL CAP APPLIED. PT REQUESTS NEW URINAL, PROVIDED. PULSE OX NOT IN PLACE, ASSISTANT REAL ESTATE MANAGER ACTIVE, CPOX RESUMED. OXYGEN SATURATIONS 98-100% ON ROOM AIR. PT DENIES ADDITIONAL REQUESTS OR COMPLAINTS. CALL LIGHT WITHIN REACH. BED RAILS UP.
--- NOTE | 2021-07-24 18:37 | NUR ---
CT TECHNITIAN ARRIVED TO TAKE PT FOR IMAGING. PT ENCOURAGED TO PUSH ARCHITECT INTERNSHIP BUTTON. IV SALINE LOCKED FOR TRANSPORT TO CT. PT TRANSFERSE SELF TO WHEELCHAIR WITH ONE PERSON ASSIST TO WHEELCHAIR. PT TO CT. PTS PRIMARY RN UPDATED.
--- NOTE | 2021-07-24 18:38 | NUR ---
Pt on O2 2LNC, desatted off and on, takes O2, off. CPOX at bedside per SCIENTIFIC INFORMATICS ANALYST protocol. Lungs clear dim at bases, no cough. Very anxioous, Has SCIENTIFIC INFORMATICS ANALYST morphine and receiving Tylenol IV ATC with fair to little pain relief. Tolerating fluids and abx well. continues to c/o low R abd pain. Was placed NPO after seen by Dr Chavarria, pt aware, received 2 doses of Gastrografin will get CT scan. Pt has been very anxious, has had multiple requests to help turn to his side, help positioning legs or take glasses off. encouraged to do own ADL's. pt flat to irritable mood all this shift. uses call light.
--- NOTE | 2021-07-24 19:06 | NUR ---
PT RETURNED FROM CT. IV FLUIDS AND JAVA PROJECT MANAGER RESTARTED. IV REMAINS WNL. CPOX REATTACHED WITH OXGYEN SATURATIONS 98-100% ON ROOM AIR. PT ASSITED WITH PUGGING IN PHONE INTERNAL AFFAIRS INVESTIGATOR. PT REQUESTS FLUIDS, EDUCATION DONE WITH PT REGARDIN NPO STATUS PER SHASTA, PTS PRIMARY RN. PT VERBALIZES UNDERSTANDING. MOUTH SWABS PROVIDED. PT DENIES ADDITIONAL REQUESTS OR COMPLAINTS. CALL LIGHT WITHIN REACH. BED RAILS UP. PTS PRIMARY RN, SHOAIB [place].
--- NOTE | 2021-07-24 19:11 | NUR ---
Back from DI, still NPO
--- NOTE | 2021-07-24 19:57 | NUR ---
THIS RN AND SAMANTHA RIVERA CAME IN TO CHECK ON PATIENT. VS ARE STABLE AND PM ASSESSMENT IS COMPLETE. PATIENT SAYS HE IS HAVING 6/10 ABD PAIN AND SOME NAUSEA. REMINDED PATIENT THAT HE NEEDS TO USE HIS COMPANY TRUCK DRIVER AND INFORMED HIM I WOULD BE BACK WITH ZOFRAN FOR NAUSEA. PATIENT AGREES WITH THIS PLAN AND CALL LIGHT IS IN REACH.
--- NOTE | 2021-07-24 20:17 | NUR ---
THIS RN RETURNED TO PATIENT'S ROOM WITH 2100 MEDS AND ZOFRAN FOR PATIENT'S NAUSEA. PAIN 6/10 IN THE ABD AND REMINDED THE PATIENT AGAIN TO USE HIS RDA. CPOX=98% ON 2L/NC WITH HR=85. AWATING CT REPORT TO CALL ABOUT A PLAN AND PATIENT WAS INFORMED WE ARE WATING ON RESAULTS. PATIENT WAS REMINDED HE IS NPO AND PATIENT VERBALIZED UNDERSTANDING. NEW ORAL SWABS FOR MOISTURE GIVEN. PATIENT DENIES ANY OTHER CARE NEEDS AT THIS TIME. CALL LIGHT IS IN REACH.
--- NOTE | 2021-07-24 20:32 | NUR ---
PATIENT CALLED FOR AN ICE PACK AND PATIENT INFORMED SOMEONE WOULD BE THERE WITH AN ICE PACK IN A FEW MINUTES. PATIENT VERBALIZED UNDERSTANDING.
--- NOTE | 2021-07-24 20:40 | NUR ---
PATIENT CALLED AGAIN FOR AN ICE PACK AND THIS RN HAS TAKEN IT TO THE PATIENT. NO OTHER CARE NEEDS AT THIS TIME. CALL LIGHT IN REACH.
--- NOTE | 2021-07-24 21:34 | NUR ---
THIS RN CALLED DR. FLORES AND READ HIM THE CT RESULT FOR THE PATIENT AND NO NEW ORDERS WERE GIVEN. ALSO IN FORMED PATIENT'S SATS WER 89% ON HIS RETURN FROM CT ON ROOM AIR AND HAVE KEPT PATIENT ON 2L/NC. INFORMED OF SOME INCIDENTAL LUNG FINDINGS ON CT REPORT AND HE VERBALIZED UNDERSTANDING.
--- NOTE | 2021-07-24 22:30 | NUR ---
THIS RN IN PATIENT'S ROOM AND HANGING 2200 ANTIBIOTIC AND IV TYLENOL. PATIENT WAS A SLEEP WHEN I WENT IN PATIENT WOKE UP WHILE I WAS CHARTING AND SAID HE HAD BEEN ABLE TO SLEEP AFTER THE ZOFRAN. PATIENT SAYS HE IS STILL NAUSEATED AND IS WANTING TO DRINK HIS GATORADE. PATIENT STILL HAS NPO ORDER. INFORMED PATIENT WE ARE TRYING TO LET HIS GUT REST AND THAT THE ZOFRAN SHOULD KEEP WORKING FOR A WHILE. PATIENT VERBLAIZED UNDERSTANDING AND IS GOING TO TRY AND GO BACK TO SLEEP. CALL LIGHT IN REACH AND LIGHTS TURNED DOWN.
--- NOTE | 2021-07-24 23:23 | NUR ---
PATIENT'S QUICK SKETCH ARTIST BEEPING AND NOBLE RN AND THIS RN CHANGED THE QUICK SKETCH ARTIST CARTRIDE AND CLEARED THE PUMP. PATIENT SAYS HIS PAIN REMAINS ABOUT 6/10 AND DOSED HIMSELF AGAIN WITH THE QUICK SKETCH ARTIST. LIGHT TURNED DOWN AND CALL LIGHT IN REACH. NO OTHER CARE NEEDS NOTED AT THIS TIME.
--- NOTE | 2021-07-24 23:37 | NUR ---
PATIENT'S RN BSN FLASHING AND HAD AN ERROR. ZOEY DIAZ AND CHARGE NURSE NOBLE WENT IN AND CORRECTED THE FAULT AND RN BSN IS FUNCTIONING PROPERLY NOW.
--- NOTE | 2021-07-25 00:10 | NUR ---
CALL LIGHT ANSWERED. PATIENT C/O TUBINGS AROUND HIS FACE, ARMS AND THE CPOX ON HIS FINGERS NEEDED TO BE PLACED TO HIS LEFT FINGER. THIS WELL REACTIVATOR OPERATOR HELPED PATIENT TO BE COMFORTABLE. RE ARRANGED THE TUBINGS. LEFT ARM IV TUBING AND O2 TUBING PLACED ABOVE HIS HEAD PILLOW AND CPOX TRANSFERRED TO LEFT FINGER. PATIENT STATED IT FEELS A LOT BETTER AND HE IS THANKFUL. EMPTIED URINAL AND RECORDED. NO OTHER NEEDS AT THIS TIME.
--- NOTE | 2021-07-25 01:52 | NUR ---
PATIENT RESTING QUIETLY ON HIS LEFT SIDE, EYES CLOSED, RESPIRATIONS ARE REGULAR AND EVEN, CALL LIGHT IN REACH. PATIENT DID NOT AWAKEN WHEN THIS RN CAME IN THE ROOM. PATIENT HAS NO NOTED CARE NEEDS AT THIS TIME.
--- NOTE | 2021-07-25 02:23 | NUR ---
PATIENT IV PUMP BEEPING COMPLETE. NEW IV BAG HUNG UP. PATIENT REQUESTING BATHROOM ASSISTANCE AND SAMANTHA RIVERA IN TO HELP PATIENT.
--- NOTE | 2021-07-25 02:45 | NUR ---
PATIENT CALLED TO USE THE TOILET. 1 PA. PATIENT DID NOT HAVE BOWEL MOVEMENT AND HAD SMALL VOIDING. PATIENT IS UP IN THE CHAIR. PATIENT C/O FEELING BLOATED AND NAUSEOUS AND ASKED IF HE CAN HAVE ICE CHIPS. PRIMARY RN ELINA NOTIFIED.
--- NOTE | 2021-07-25 03:04 | NUR ---
PATIENT UP IN THE BEDSIDE ARMCHAIR AND CALL LIGHT IN REACH. PATIENT HAS C/0 8.5/10 ABD PAIN AND PATIENT ENCOURAGED TO USE HIS BAR MACHINE OPERATOR. PATIENT SAYS HE IS NAUSEATED AND 4MG IV ZOFRAN GIVEN. PATIENT WANTS TO DRINK OR HAVE ICE CHIPS. INFORMED THE PATIENT THAT HE CONTINUES HAVING C/O NAUSEA AND IT IS NOT GOOD TO ADD THINGS ON TO HIS STOMACH. ALSO TOLD IF DECIDES TO DUE SURGERY THIS MORNING PATIENT NEEDS TO REMAIN NPO. PATIENT NOT HAPPY,"I SHOULD HAVE BEEN HIS FIRST STOP". INFORMED THE PATIENT IS AWARE OF WHAT IS GOING ON AND WE HAVE BEEN ABLE TO MANAGE HIS NAUSEA WITH MEDS AND PAIN WITH HIS BAR MACHINE OPERATOR PUMP WHEN HE USES IT. PATIENT WANTS TO SIT UP IN THE CHAIR AWHILE LONGER AND WILL CALL TO GO BACK TO BED. PATIENT GIVEN NEW ORAL SWABS FOR MOISTURE. PATIENT HAS NO OTHER CARE NEEDS AT THIS TIME.
--- NOTE | 2021-07-25 04:11 | NUR ---
THIS RN IN TO CHECK ON PATIENT. PATIENT RESTING IN SEMI-FOWLERS POSITION, EYES CLOSED, RESPIRATIONS ARE REGULAR AND EVEN, AND CALL LIGHT IS IN REACH. PATIENT HAS NO NOTED CARE NEEDS AT THIS TIME.
--- NOTE | 2021-07-25 05:58 | NUR ---
PATIENT'S PAIN IS NOW 5/10 WITH NO C/O NAUSEA AT THIS TIME. PATIENT WAS SLEEPING WHEN STAFF CAME IN TO DO VITALS AND ASSESSMENT. ZOEY DICKEY CLEARED SULFONATION EQUIPMENT OPERATOR PUMP WITH THIS RN. SAMANTHA RIVERA TOOK VITAL SIGNS. AM ASSESSMENT REMAINS UNCHANGED AND PATIENT REMAINS ON 2L/NC. PATIENT HS NO OTHER CARE NEEDS AT THIS TIME. LIGHT TURNED DOWN AT PATIENT'S REQUEST AND CALL LIGHT IS IN REACH.
--- NOTE | 2021-07-25 06:39 | NUR ---
THIS RN CALLED AND TALKED WITH AND PATIENT IS TO CONTINUE TO REMAIN NPO. INFORMED ABOUT PATIENT'S NAUSEA AND HOW HE DID THROUGH THE NIGHT. NO NEW ORDERS GIVEN AT THIS TIME.
--- NOTE | 2021-07-25 07:27 | NUR ---
REPORT RECEIVED FROM ZOEY ANTOINE. PT RESTING IN BED ON LEFT SIDE. PT REPORTS 5-6/10 PAIN, PT ENCORUAGED TO USE ASPNET DEVELOPER PUMP. PT DENIES ADDITIONAL REQUESTS OR COMPLAINTS. OXGYEN [id number]% ON 2L O2 BY NC. CPOX IN PLACE. NO ADDITIONAL REQUESTS OR COMPLAINTS. CALL LIGHT WITHIN REACH. BED RAILS UP.
--- NOTE | 2021-07-25 09:07 | NUR ---
MORNING ASSESSMENT AND MEDICAITON DUE. PT RESTING ON LEFT SIDE IN BED. PT REPORTS 6/10 PAIN IN ABDOMEN. CLAMSHELL ENGINEER AT BEDSIDE, PT USES FREQUENTLY. SCHEDULED MEDICATION GIVEN. IV ABX INFUSION COMPLETE. LEFT AC IV FLUSHED AND SALINE LOCKED. PT ALERT AND OREINTED, INTERACTING APPROPRIATLY. USES CALL LIGHT FREQUENTLY. STAND BY ASSIST UP TO CHAIR, STAND BY ASSIST FOR CORD MANAGEMENT. PT REPORTS HE WOULD LIKE TO SIT UP FOR A WHILE.LUNG SOUNDS CLEAR, DEMINISHED IN BASES WITH MINOR CRACKES NOTED ON RIGHT SIDE. I.S. EDUCATION DONE. PT DEMONSTRATES UNDERSTANDING REACHIGN 750ML X10. PT WEANED TO ROOM AIR, MAINTAINING OXGYEN SATURATIONS ABOVE 92%. HEART RATE 90'S. CONSENT SIGNED. PT VOIDIGN QUANTITY SUFFICIENT. ABDOMEN MODERATLY DISTENDED. FIRM TO TOUCH. HYPACTIVE BOWEL TONES NOTED. PT REMAINS UP TO CHAIR. SURGICAL CONSENT SIGNED. NO ADDITIONAL REQUESTS OR COMPLAINTS. CALL LIGHT WITHIN REACH.
--- NOTE | 2021-07-25 10:21 | NUR ---
THIS RN TO ROOM TO CHECK ON PT. PT UP TO CHAIR. PT REPORTS HE NO LONGER WANTS TO WEAR COPX OR "ANY OF THESE OTHER CORDS." EDCUATION DONE WITH PT REGARDING NEED FOR CPOX IF SPACE STUDIES FACULTY MEMBER IS IN PLACE. PT AGREES TO PLACE CPOX BACK ON FINGER. OXGYEN STATUATIONS NOTED TO BE 88% ON ROOM AIR. PT PLACED BACK ON 2L O2 BY NC. WITH OXGYEN SATURATIONS CLIMBING TO 96%. PT REPORTS 7/10 PAIN. PT STATES HE HAS NOT BEEN USING HIS SPACE STUDIES FACULTY MEMBER. PT ENCOURAGED TO USE SPACE STUDIES FACULTY MEMBER WHEN NEEDED FOR PAIN. PT UPDATED ON PLAN FOR SURGERY. IV TYLENOL INFUSION AND FLUSH COMPLETE. LEFT AC IV SALINE LOCKED AT THIS TIME, ALCOHOL CAP APPLIED. RIGHT AC IV CONTINUES INFUSING FLUIDS AND SPACE STUDIES FACULTY MEMBER. FRESH ICE PACK PROVIDED. NO ADDITIONAL REQUESTS OR COMPLAINTS AT THIS TIME. CALL LIGHT WITHIN REACH.
--- NOTE | 2021-07-25 10:29 | NUR ---
PATIENT UP IN CHAIR AT THIS TIME. VITALS AND I&O'S CHARTED. PRE SURGICAL WIPE DOWN DONE WITH ASSISTANCE FROM PATIENT. LINENS CHANGED. CALL LIGHT IN REACH. NO FURTHER NEEDS AT THIS TIME. NEW GOWN PROVIDED.
--- NOTE | 2021-07-25 10:30 | NUR ---
PATIENT REFUSED ANY HELP WITH PRESURGICAL WIPE DOWN. INSTRUCTIONS GIVEN ON HOW TO DO THE WIPE DOWN AND PATIENT REPEATED INSTRUCTIONS TO ME. PATIENT SAID HE WOULD CALL IF HE NEEDED ANY HELP. CALL LIGHT IN REACH. NO FURTHER NEEDS AT THIS TIME.
--- NOTE | 2021-07-25 10:56 | NUR ---
PATIENT UP IN ROOM AND ASKING HELP WITH GETTING A FRESH GOWN ON. PATIENT IS FRUSTRATED AT THIS TIME. PATIENT NOW IN CHAIR. CALL LIGHT IN REACH. NO FURTHER NEEDS AT THIS TIME.
--- NOTE | 2021-07-25 11:20 | NUR ---
THIS RN TO ROOM TO CHECK ON PT. PT UP TO CHAIR. PT REPORTS HE IS FINISHED WITH HIS PRE OP WIPE DOWN. PT IRRITABLE AND STATING "I'M BEING NEGLECTED AND NEVER GET GOOD CARE." 20 MINUTES SPENT LISTENING TO PT CONCERNS. PT REPORTS "I JUST WANT TO GET OUT OF HERE NOW." PT EDUCATION DONE. PT VERBALIZES UNDERSTANDING. PT REPORTS "I JUST DONT' WANT TO WAIT FOR ANYTHING, I WANT SURGERY NOW." PT UP REMINDED OF PLAN AND TIME SURGERY IS SCHEDULED. PT ENCORUAGED TO DO DISTRACTION ACTIVITIES WHILE WAITING. TV REMOTE AND OTHER ACTIVITIES OFFERED. PT CONFIRMS FEELING ANXIOUS AND STATES HE WILL TRY WATCHING TV OR PLAING ON PHONE. PT DENEIS ADDITIONAL REQUESTS OR COMPLAINTS. CALL LIGHT Coub. REACH.
--- NOTE | 2021-07-25 12:37 | NUR ---
THIS RN TO ROOM TO CHECK ON PT. PT UP TO CHAIR PLAYING ON PHONE. PT REPORTS 5/10 PAIN IN ABDOMEN THAT IS "TOLERABLE" AT THIS TIME. PRE OP EDUCATION DONE WITH PT. PTS QUESTIONS ANSWERED ABOUT PROCEEDURE. PT DENIES ADDITONAL REQUESTS OR COMPLAINTS. DEMONSTRATES UNDERSTANDING OF NPO STATUS REQUESTING MOUTH SWABS. CALL LIGHT WITHIN REACH.
--- NOTE | 2021-07-25 13:00 | NUR ---
Attempted to speak with pt and he states he is not decent. Informed I can return later. Updated I am from CM and checking on him. He denies needs and place on surgery later today. Will check on him tomorrow.
--- NOTE | 2021-07-25 13:46 | NUR ---
AFTERNOON ASSESSMENT AND MEDICATION DUE. THIS RN TO ROOM. PT REPORTS "I FEEL MUCH BETTER NOW THAT WE HAVE BEEN TALKING ABOUT EVERYTHING." PT REPORTS ONGOING 6/10 BURING PAIN IN ABDOMEN AND REPORTS HE IS USING HIS EDGE STRIPPER. PT CALM AT THIS TIME. UPDATEDON PLAN OF CARE AND PLAN FOR SURGERY. PT REPORTS "I'M JUST EXCITED TO GET IT DONE. I'LL WAIT FOR WHENEVER DR. FLORES IS READY." DR. FLORES CALLED AND STATES IT IS OK TO START IV ABX AT THIS TIME, DOES NOT NEED TO BE HELD FOR PRE OP. IV ABX STARTED. PT REMAIN ALERT AND ORDIENTED. LUNG SOUDNS CLEAR IN UPPER LOBES DEMINISHED IN BASES WITH SMALL AMOUNT OF CRACKELS NOTED ON RIGTH LOWER LOBE. PT REMAIN ON 2L O2 BY NC TO MAINTAIN OXYGEN SATURAIONS ABOVE 92%. PT DEMONSTRATES USE OF I.S. REACHING 1500ML X5. HEART TONES REGULAR. ABDOMEN REMAINS TENDER TO TOUCH, MODERATLY DISTENDED AND FIRM. BOWEL TONES HYPOACTIVE. PT REPORTS DEEP BREATHING IS "HARD BECAUSE OF MY STOMACH." NO INCREASED WORK OF BREATHING NOTED. PT DENIES ADDITIONAL REQUESTS OR COMPLAINTS. FRESH ICE PACK PROVIDED. PT REMAINS UP TO CHAIR. CALL LIGHT WITHIN REACH.
--- NOTE | 2021-07-25 14:31 | NUR ---
PATIENT SITTING UP IN BED WATCHING TV AND USING I.S. VITALS AND I&O'S CHARTED. CALL LIGHT IN REACH. NO FURTHER NEEDS AT THIS TIME.
--- NOTE | 2021-07-25 15:11 | NUR ---
THIS RN TO ROOM TO CHECK ON PT. PT RESTING IN BED AND REPORTS FEELING TIRED. PT REPORTS 5/10 PAIN AND STATES HE WOULD LIKE TO TAKE A NAP WITH NO VISITORS. "NAP TIME" SIGN PLACED ON DOOR. PT DEMONSTRATES USE OF CALL LIGHT. 2L O2 BY NC REMAINS IN PLACE WITH OXGYEN SATURATION OF 98%. CALL LIGHT WITHIN REACH. BED RAILS UP.
--- NOTE | 2021-07-25 15:52 | NUR ---
PT HERE FOR ACUTE DIVERTIULITIS. PT ANTICIPATING SURGERY THIS SHIFT, REMAINS NPO FOR SUGERY, EXPECTED SURGERY THIS EVENING. PT UP IN ROOM WITH STAND BY ASSIST FOR CORD MANAGEMENT. PT ALERT AND ORIENTED. THERAPUTIC COMMUNICATION AND PRE OP EDUCATION DONE WITH GOOD EFFECT AND RELIEF OF AXIETY. LUNG SOUNDS REMAIN CLEAR. PT REMAIN SON 2L O2 BY NC WITH CPOX IN PLACE RELATED TO RECREATION CENTER DIRECTOR USE. PT USING RECREATION CENTER DIRECTOR NEEDED FOR PAIN CONTROL. ABOMDINAL PAIN THIS SHIFT 5-01/21. I.S USE ENSURED THIS SHIFT WITH PT IMPROVING FROM 750ML TO 1500ML. IV ABX GIVEN. IV FLUIDS CONTINUE. PT VOIDING QUANTITY SUFFICIENT. ABODOMENT DISTENDED AND TENDER TO TOUCH. BOWEL TONES HYPOACTIVE. PT USES CALL LIGHT AND MAKES NEEDS KNOWN.
--- NOTE | 2021-07-25 16:05 | NUR ---
THIS RN TO ROOM TO CHECK ON PT. PT RESTING ON LEFT SIDE WITH EYES CLOSED. RESPIRATIONS EVEN AND UNALBORED. OXYGEN SATURATIONS OF 98% ON 2L O2 BY NC. IV MEDICAITON GIVEN. PT ALLOWED TO REST. CALL LIGHT WITHIN REACH. BED RAILS UP.
--- NOTE | 2021-07-25 16:24 | NUR ---
IV TYELNOL COMPLETE. IV FLUIDS AND RESIDENTIAL DIRECT SUPPORT PROFESSIONAL RESTRATED. PT CONTINUES RESTING WITH EYES CLOSED. RESPIRATIONS EVEN AND UNLABORED. OXYGEN SATURATIONS 98% ON 2L O2 BY NC. ABX INFUSION COMPLETE. LEFT AC IV SALINE LOCKED, ALCOHOL CAP APPLIED. ELOISA SENIOR ELECTRICAL DESIGN ENGINEER TO ROOM TO UNIT CONTROL WORKER PT. REPORT GIVEN TO ELOISA, PT TRANSFERSE SELT TO OR STRETCHER. PT VERBALIZES UNDERSTANDING OF PLAN OF CARE. NO ADDITIONAL REQUESTS OR CONCERNS. PT TO OR.
--- NOTE | 2021-07-25 19:20 | NUR ---
REPORT RECEIVED FROM ZOEY YOUNGBLOOD. pt OFF FLOOR FOR SURGERY.
--- NOTE | 2021-07-25 22:22 | NUR ---
07/25/212221 Raine Harding 2103 PT ARRIVED IN PACU SLEEPY WITH NO C/O'S. NG SET TO LIS. 2109 C/O LOW BACK PAIN. PILLOW BEHIND BACK FOR COMFORT. 2121 C/O NAUSEA. INAPSINE 0.625MG GIVEN IVP. 2129 NAUSEA GONE. AT BEDSIDE TALKING TO PT. 2144 CONTINUES TO C/O CHRONIC LOW BACK PAIN. REPOSITIONED IN BED FOR COMFORT. 2209 TO ROOM 123. BED PLUGGED IN. REPORT GIVEN TO RN.
--- NOTE | 2021-07-25 23:05 | NUR ---
pt ARRIVES TO MS FLOOR WITH SURGERY RNS GUICHO AND VANCE. pt DROWSY, C/O BACK AND GENERAL "ALL OVER" PAIN. IV SITES FLUSHED WNL. LEAD CARPENTER AND IVF INFUSING WNL. pt PUSHING LEAD CARPENTER BUTTON. ASSESSMENT COMPLETE. BANDAIDS X2 INTACT, SMALL AMT SHADOWING ON MIDLINE INCISION, TERESA DRAIN WITH SS FLUID IN BULB. OSTOMY RED, BEEFY, MOIST, SMALL AMT SS DRAINGE. pt RATES PAIN 10/10. SNORING AFTER RN STOPS TALKING WITH pt. ABD SOFT, DISTENDED, BOWEL TONES PRESENT X 4. SCDS PLACED ON pt. NGT TO LOW INT SUCTION, GREEN/BROWN DRAINAGE IN TUBING. pt DENIES NAUSEA. CALL LIGHT IN REACH.
--- NOTE | 2021-07-25 23:14 | NUR ---
ANSWERED CALL LIGHT. PATIENT WANTING TO LAY ON HIS SIDE. PLACED PILLOWS ON RIGHT BACK. BUT THEN PATIENT TURN HIS BACK FLAT RIGHT AWAY. OPERATIONAL REVIEW SERGEANT PUMP BEEPING. MONORAIL HELPER WAS THERE TO FIX IT.
--- NOTE | 2021-07-25 23:20 | NUR ---
CALL LIGHT ANSWERED. BLOW MOLDING MACHINE TENDER CARTRIDGE REPLACED WITH RN NOBLE VERIFICATION. pt RESTING IN BED, DROWSY. AWAKENS EASILY. RATES PAIN IN ABD 10/10, SNORING WITHIN SECONDS OF SPEAKING. SPO2 WNL WITH 3L OXYGEN BY NC IN PLACE. CALL LIGHT WITHIN REACH.
--- NOTE | 2021-07-26 01:10 | NUR ---
IN ROOM FOR POST OP VS. pt SLEEPING, SNORING SPO2 95% WITH 3L OXYGEN BY NC IN PLACE. pt AWAKENS EASILY, PUSHES MORPHINE RUBBER MILL OPERATOR UPON AWAKENING. REPOSITIONS SELF IN BED. VSS. pt COMPLAINS OF LOWER BACK PAIN "MY SCOLIOSIS IS REALLY BAD". MOUTH SWABS PROVIDED pt C/O THROAT DISCOMFORT FROM TUBES. NGT IN PLACE TO LOW INT WALL SUCTION. DUNNE DRAINING YELLOW URINE. CALL LIGHT IN REACH.
--- NOTE | 2021-07-26 02:03 | NUR ---
ASSISTED PT TO TURN ON HIS LEFT SIDE, STATES HIS ABD IS 6/10 PAIN, BUT LOWER BACK IS 9/10. PILLOW SUPPORT IN PLACE. HAS BED CONTROLS TO ADJUST OWN POSITION.
--- NOTE | 2021-07-26 03:53 | NUR ---
pt RESTING IN BED WITH EYES CLOSED. BREATHING EQUAL AND UNLABORED. SPO2 92% WITH 3L OXYGEN BY NC IN PLACE. DUNNE DRAINING. IVF INFUSING WNL.
--- NOTE | 2021-07-26 04:43 | NUR ---
pt AWAKE, DROWSY. SITTING UP IN BED. CONTINUES TO COMPLAIN OF BACK PAIN, USING MORPHINE OIL TESTER. IV OFIRMEV INFUSING WNL ORDERED. ICE WATER PROVIDED FOR pt TO RINSE MOUTH, SPITTING WATER OUT FOR COMFORT. CALL LIGHT IN REACH. DUNNE DRAINING QS OUTPUT.
--- NOTE | 2021-07-26 05:16 | NUR ---
pt RESTING IN BED AWAKE. pt RATES PAIN 6-7/10 IN LOWER BACK. ASSESSMENT COMPLETE. pt USING UNIT SUPERVISOR PUMP AT THIS TIME, UNIT SUPERVISOR REPLACED. SCDS ON. MID ABD DRESSING LEAKING AT BOTTOM OF DRESSING, SANGUINOUS DRAINAGE. LOWER HALF DRESSING WITH SANGUINOUS SHADOWING. BANDAIDS IN PLACE WITH SMALL AMT SHADOWING. OSTOMY WITH 25 MLS SANGUINOUS DRAINAGE EMPTIED. TERESA DRAIN EMPTIED 15 MLS SEROSANGUINOUS DRAINAGE. NGT WITH SMALL AMT GREEN DRAINAGE IN CANNISTER. pt REPOSITIONED TO RIGHT SIDE LYING POSITION WITH MINIMAL ASSIST. LIGHTS OFF IN ROOM. CALL LIGHT IN REACH.
--- NOTE | 2021-07-26 05:55 | NUR ---
pt SNORING WHEN RN ENTERS ROOM. AWAKENS TO VOICE. IV ANTIBIOTIC INFUSING WNL. pt LYING ON RIGHT SIDE. DENIES ANY NEEDS. CALL LIGHT IN REACH.
--- NOTE | 2021-07-26 07:30 | NUR ---
report recieved from spine surgeon RN pt in bed awake but slightly drowsy, ng in place to low intermittent suction, flowy in place, spray machine operator 2 mg q6 min lock out, LR @ 85, mid abd dressing reinforced overnight due to drainage, ostomy bright red, adeline ioana intact, npo , on 3L nc , no needs at the moment call light within reach.
--- NOTE | 2021-07-26 08:35 | NUR ---
PT ACCEPTED WARM WASHCLOTH. WHITE BOARD UPDATED. ASSISTED PT IN GETTING TO CHAIR. BROUGHT WARM BLANKET TO COVER CHAIR WITH. CALL LIGHT WITHIN REACH, NO FURTHER NEEDS AT THIS TIME.
--- NOTE | 2021-07-26 08:42 | NUR ---
RN IN ROOM TO DO MORNING MEDS AND DO MORNING ASSESSMENT,PT AWAKE ALERT AND AND ON ROOM AIR,SITTING UP IN CHAIR, HAS MANY QUESTIONS OVER COLOSTOMY, PRINTED EDUCATION PROVIDED, PT COMPLAINING OF NAUSEA PRN ZOFRAN GIVEN, NO OTHER NEEDS AT THE MOMENT
--- NOTE | 2021-07-26 09:51 | NUR ---
RN IN ROOM TO REPLACE GUN PERFORATOR LOADER SYRINGE.
--- NOTE | 2021-07-26 10:30 | NUR ---
RN IN ROOM TO GIVE IV TYLENOL, WHILE IN ROOM DR FLORES ROUNDKAT PER PROFVIDER PULL NG TUBE AND DUNNE. PT TOLERATED WELL,
--- NOTE | 2021-07-26 11:49 | NUR ---
PT AMBULATED AROUND UNIT TOLERALTED WELL, REMAINS UP IN THE RECLINER
--- NOTE | 2021-07-26 13:50 | NUR ---
Spoke with Major. He is standing in the room speaking with the nurse. States his pain cont., but is better than prior to surgery. No plan for dc today.
--- NOTE | 2021-07-26 14:36 | NUR ---
PT IN CHAIR WATCHING PHONE. PT COMPLAINS OF NAUSEAU. RN TRUNG AWARE. CALL LIGHT WITHIN REACH, NO FURTHER NEEDS AT THIS TIME.
--- NOTE | 2021-07-26 15:14 | NUR ---
Dr Gamble called and asked for more nause meds, order for phengran placed.
--- NOTE | 2021-07-26 16:18 | NUR ---
RN IN ROOM TO IV TYLENOL AND PRN PHENGRAN, PT ASSISTED BACK TO BED, NEW ABD PAD PLACED TO LOWER ABD, INCSION, PT RESTING IN BED, NO NEEDS AT THE MOMENT
--- NOTE | 2021-07-26 17:46 | NUR ---
rn in room to do vital signs and I&O pt awake and alert in bed brother in room uodated on pt status no other needs at the moment
--- NOTE | 2021-07-26 18:40 | NUR ---
new reproduction machine loader morphine syringe started, pt reports he was able to void 400, charted in I&O, denies any other needs at the moment
--- NOTE | 2021-07-26 19:15 | NUR ---
SHIFT REPORT RECEIVED FROM [facility] ZOEY NINO AT BEDSIDE, pt AWAKE AND RESTING IN BED, CPOX IN PLACE, pt ON RA. SPO2 LOW TO MID 90'S, HR WNL. MIDLINE DRESSING PARTIALLY SATURATED ON LOWER PORTION OF DRESSING, WITHIN OUTLINE, SANGUINEOUS IN COLOR. OSTOMY SITE TO LEFT LOWER QUADRANT WNL, SCANT SANGUINEOUES DRAINAGE NOTED IN OSTOMY BAG. STOMA BEEFY RED AND WNL. PER REPORT, MD AWARE OF DRAINAGE TO BOTH MIDLINE AND STOMA AND EXPECTED AT THIS TIME. WILL MONITOR. TERESA DRAIN TO LLQ, WILL MONITOR OUTPUT. IV FLUIDS INFUSING DIRECTED, SITE WNL. NO FURTHER NEEDS, CALL LIGHT IN REACH.
--- NOTE | 2021-07-26 19:15 | NUR ---
SHIFT [facility] ZOEY NINO AT BEDSIDE, pt AWAKE AND RESTING IN BED, CPOX IN PLACE, pt ON RA. SPO2 LOW TO MID 90'S, HR WNL. MIDLINE DRESSING PARTIALLY SATURATED ON LOWER PORTION OF DRESSING, WITHIN OUTLINE, SANGUINEOUS IN COLOR. COLOSTOMY SITE WNL, SCANT SANGUINEOUES DRAINAGE NOTED IN COLOSTOMY BAG. STOMA BEEFY RED AND WNL. PER REPORT, MD AWARE OF DRAINAGE TO BOTH MIDLINE AND STOMA AND EXPECTED AT THIS TIME. WILL MONITOR. TERESA DRAIN TO LLQ, WILL MONITOR OUTPUT. IV FLUIDS INFUSING DIRECTED, SITE WNL. NO FURTHER NEEDS, CALL LIGHT IN REACH.
--- NOTE | 2021-07-26 20:20 | NUR ---
IN TO GET VITALS, PT IS DUE TO VOID, OSTOMY BAG NOT NEEDING TO BE EMPTIED, NO FURTHER NEEDS AT THIS TIME
--- NOTE | 2021-07-26 23:00 | NUR ---
ASSESSMENT COMPLETE, SCHEDULED MEDS GIVEN (SEE EMAR). pt REPORT SUGAR IS TOLERBALE, HAND SEWER PUMP PROGRAMS VERIFIED WITH SECOND RN NOBLE. WILL CAHNGE HAND SEWER CARTRIDGE WHEN CURRENT ONE IS EMPTY. MIDLINE DRESSING REMAINS UNCHANGED-LOWER PORTION OF DRESSING SATURATED WITH SANGUINEOUS SHADOWING, BUT WITHIN OUTLINE. MINIMAL AMOUNT ESCAPED BEYOND DRESSING D/T AMBULATION ON DAYSHIFT. ABD PAD REMAISN IN PLACE FOR REINFORCEMENT. TERESA SITE WNL, WILL EMPTY PRN. IV SITES X2 WNL. IV ABX INFUSING DIRECTED. SCD'S ON AT THIS TIME. SAMANTHA WHITTEN TO ASSIST pt FRMO BED TO CHAIR. SPO2 MID TO UPPER 80'S ON RA, 2LNC IN PLACE-SPO2 NOW SUSTAINING WNL.
--- NOTE | 2021-07-27 00:44 | NUR ---
pt RESTING IN CHAIR, CPOX IN PLACE. 2LNC IN PLACE WELL. SPO2 UPPER 90'S, HR WNL. IV ABX AND IV FLUIDS INFUSING DIRECTED. CALL LIGHT AND WEB PRODUCTION DESIGNER BUTTON BOTH IN REACH. WILL CONTINUE TO MONITOR.
--- NOTE | 2021-07-27 01:25 | NUR ---
NEW MANAGER CREDIT COLLECTIONS PUMP CARTRIDGE GIVEN, SEE EMAR. MANAGER CREDIT COLLECTIONS PUMP SETTINGS PROGRAMED WITH SECOND RN NOBLE. IV SITE X2 WNL. pt BACK IN BED, CALL LIGHT IN REACH. MANAGER CREDIT COLLECTIONS BUTTON ALSO IN REACH OF pt.
--- NOTE | 2021-07-27 02:42 | NUR ---
pt RESTING IN BED WITH EYES CLOSED, RR EVEN AND UNLABORED. 2LNC IN PLACE, CPOX REMAINS AT BEDSIDE. SPO2 98%, HR WNL. NO DISTRESS NOTED, CALL LIGHT IN REACH.
--- NOTE | 2021-07-27 03:22 | NUR ---
ROUNDED ON pt, IV PUMP ALARMING, ISSUE RESOLVED. ASSESSMENT COMPLETE, NO ACUTE CHANGES. MIDLINE DRESSING REMAINS INTACT, SOMEWHAT LOOSE IN DISTAL END R/T PUBIC HAIRLINE. DRESSING REMAINS PARTIALLY SATURATED, SANGUINEOUS IN COLOR. REMAINS REINFORCED WITH ABD PAD. TERESA DRAIN WNL. DIMPLING MACHINE OPERATOR PUMP AND CALL LIGHT BOTH IN REACH. pt REPORTS PAIN IS TOLERABLE, BUT DID NOT RATE W/ NUMBER. DENIES NAUSEA, BOWEL TONES ACTIVE. pt ASSISTED WITH LAYING ON HIS RIGHT SIDE. NO FURTHER NEEDS, CALL LIGHT IN REACH.
--- NOTE | 2021-07-27 04:43 | NUR ---
IV TYELNOL GIVEN, SEE EMAR. pt AWAKE AND RESTING IN BED. TRESTLE BUILDERValorie SALCEDO TO COMPLETE VS AND I&O'S. CALL LIGHT IN REACH.
--- NOTE | 2021-07-27 05:31 | NUR ---
INFORMED BY SAMANTHA SALCEDO, pt CONCERNED ABOUT "BLEEDING FROM DRESSING". THIS RN IN ROOM TO ASSESS. pt FOUND AWAKE AND RESTING IN CHAIR, MIDLINE ABD DRESSING REMAINS UNCHANGED, BLEEDING FROM LOOSE DISTAL END OF DRESSING D/T POSITION. pt EDUCATED AND REASSURED, NO FURTHER NEEDS. CALL LIGHT IN REACH.
--- NOTE | 2021-07-27 06:50 | NUR ---
SCHEDULED IV ABX INFUSING DIRECTED, IV SITE X2 WNL. pt DENEIS FURTHER NEEDS, CALL LIGHT IN REACH ALONG WITH REAL ESTATE MANAGEMENT SPECIALIST BUTTON.
--- NOTE | 2021-07-27 07:30 | NUR ---
report recieved from commissioning engineer RN, pt up in chair, awake and alert, LR running @ 85, TEAR DOWN MAN pump on and functioning per orders, dressings with scant drainage will wait for provider to change dressing, warm blanket provided no other needs at the moment
--- NOTE | 2021-07-27 09:56 | NUR ---
PT STANDING NEXT TO CHAIR TO VOID. STATED HIS PAIN LEVEL AFTER SITTING BACK DOWN IN THE CHAIR, WAS AT A 9/10. 15 MIN AFTER 4MG OF MORPHINE FROM GREASE REFINER OPERATOR, PT STATED HE WAS AT A 6/10 PAIN. PT EXPERIENCED NAUSEA WHILE PUSHING FAMOTADINE, BUT NAUSEA SUBSIDED. CHANGED BANDAGES OVER DOLORES ON PT'S ABDOMEN. LET PT KNOW THAT THE GOAL WAS TO GET HIM UP TO WALK AROUND 3X PER DAY.
--- NOTE | 2021-07-27 10:20 | NUR ---
RN IN ROOM TO REPLACE MORPINE GEOPHYSICAL DRAFTER, PUMP CLEARED, GOING TO GET UP TO WALK WITH BROWNFIELD PROGRAM COORDINATOR
--- NOTE | 2021-07-27 11:30 | NUR ---
dr macdonald on the floor talked to provider about dressing, ok to remove surgical dressing and leave open to air, 4x4 placed on incision where it has drainage
--- NOTE | 2021-07-27 13:10 | NUR ---
Spoke with pt. Better today. Denies needs.
--- NOTE | 2021-07-27 13:30 | NUR ---
PT UP AND WALKING WITH WOOD COATER, DENIES ANY OTHER NEEDS AT THE MOMENT
--- NOTE | 2021-07-27 15:18 | NUR ---
dr macdonald in room to round on pt
--- NOTE | 2021-07-27 18:00 | NUR ---
RN IN ROOM TO ASSIST WITH STARTING IV POTASSIUM, PT GETTING READY TO Ambulate the halls with the assistance of nursing assistants teacher, denies any needs at the moment
--- NOTE | 2021-07-27 18:40 | NUR ---
rn in room to change residential sales consultant pump, witnessed by madelyn pierce see emar
--- NOTE | 2021-07-27 19:15 | NUR ---
SHIFT REPORT RECEIVED FROM DAYSVAFT RN TRUNG AT BEDSIDE. pt AWAKE AND RESSTING IN CHAIR. IV FLUIDS INFUSING DIRECTED ALONG WITH DIRECTOR LONG TERM CARE MORPHINE, DIRECTOR LONG TERM CARE BUTTON AND CALL LIGHT IN REACH. MIDLINE INCISION VIVIANA, WITH DOLORES INTACT. SMALL 4X4 GAUZE TO UPPER AND LOWER INCISION, C/D/I. IV POSTASSIUM RIDER INFUSING VIA RIGHT AC IV SITE. IV SITE X2 WNL. NO FURTHER NEEDS, CALL LIGHT IN REACH. CPOX IN PLACE, SPO2 94% ON RA, HR 81.
--- NOTE | 2021-07-27 20:22 | NUR ---
IN TO GET VITALS, CPOX ALARMING "SPD ALERT" RT JUST HAPPING TO BE NEAR ROOM, ABLE TO FIX SPD SETTINGS, ICE WATER FILLED, NO FURTHER NEEDS AT THIS TIME
--- NOTE | 2021-07-27 21:41 | NUR ---
SCHEDULED MEDS GIVEN (SEE EMAR). ASSESSMENT COMPLETE. pt DOES NOT RATE PAIN, BUT APPEARS RELAXED AND COMFORTABLE OVERALL. pt UP SBA FROM BED TO SITTING ONEDGE OF BED, FLASHER ADJUSTER MARIA DOLORES TO ASSIST pt TO CHAIR. INCISION LINING FINISHER WITH DOLORES INTACT, SMALL 4X4 GAUZE TO UPPER AND LOWER PORTION OF MIDLINE INCISION TO ASSIST WITH PRN DRAINAGE R/T AMBULATION- PLACED EARLIER ON DAYSHIFT. GAUZE C/D/I. WILL MONITOR FOR CHANGES. IMAGING ENGINEER PUMP AND CALL LIGHT BOTH IN REACH. NO FURTHER NEEDS, CALL LIGHT IN REACH.
--- NOTE | 2021-07-27 22:40 | NUR ---
SCHEDULED IV ABX AND 2 OF 4 POTASSIUM RIDERS INFUSING DIRECTED. FLOAT ZOEY BARBOSA RECENTLY IN ROOM TO PLACE NEW IV TO LEFT AC. pt REPORTS SOME PAIN WITH IV SITE WHEN BENDING ARM. SITE SL, FLUSHES EASILY WITH NO REDDNESS NOTED. PAIN RESOLVED ONCE WRAPPED WITH COBAN AND WASH CLOTH. IV ABX INFUSING VIA RIGHT AC PER pt REQUEST, SITE WNL. PER BILL FROM TELEPHARMACY, POTASSIUM RIDER WITH LIDOCAINE AND D5% AND MORPHINE PARACHUTE MENDER COMPATIBLE. pt DENIES FURTHER NEEDS, CALL LIGHT IN REACH.
--- NOTE | 2021-07-27 22:45 | NUR ---
ASSISTED PT WITH TUBING AND WIRES WHILE TRANSFERING BED TO CHAIR, ITEMS, CALL LIGHT SET AT CHAIRSIDE, CINTHIA MANZANO
--- NOTE | 2021-07-28 00:06 | NUR ---
PT UP IN RECLINER CHAIR, CHECKED POTASSIUM INFUSING, WNL. PT WITH NO NEEDS AT THIS TIME. SLEEPING OFF AND ON HE SAID, WHILE PHONE IS SHOWING A MOVIE/
--- NOTE | 2021-07-28 00:48 | NUR ---
ROUNDED ON pt, pt AWAKE AND RESTING IN CHAIR, IV SITES X2 WNL. pt DENIES PAIN AT IV SITES. PER POLICY, RECHECK POTASSIUM LEVELS AFTER 40MEQ ADMINISTRATION. LAB AWARE AND PLANS TO COME COLLECT BLOOD. pt DENIES NEEDS OR CONCERNS, CALL LIGHT IN REACH.
--- NOTE | 2021-07-28 01:04 | NUR ---
LAB IN ROOM FOR SCHEDULED BLOOD DRAW.
--- NOTE | 2021-07-28 01:49 | NUR ---
NEW STUMPER FELLER MORPHINE CARTRIDGE IN PLACE, SETTINGS VERIFIED WITH SECOND RN DARRIAN. pt REPORTS PAIN 6.5/10, STUMPER FELLER BUTTON AND CALL LIGHT BOTH IN REACH. ASSESSMENT COMPLETE, NO ACUTE CHANGES. DRESSING TO ABD MIDLINE UNCHANGED, FAINT REDDNESS NOTED TO ABD, WILL MONITOR. OSTOMY SITE TO LEFT QUADRANT WNL, BEEFY AND RED IN APPEARANCE. IV SITES X3 WNL. pt DENIES PAIN WITH IV ABX OR FLUID INFUSION. NO FURTHER NEEDS, CALL LIGHT IN REACH.
--- NOTE | 2021-07-28 03:05 | NUR ---
3 OF 4 POTASSIUM RIDER INFUSING DIRECTED, IV SITES X3 WNL. pt RECENTLY AMBULATED IN HALLWAY WITH HELP FROM SAMANTHA WHITTEN. TOLERATED WELL. NO FURTHER NEEDS, CALL LIGHT IN REACH.
--- NOTE | 2021-07-28 04:19 | NUR ---
SCHEDULED IV TYLENOL GIVEN, SEE EMAR. IV SITES X3 WNL. pt DENIES PAIN WITH POTASSIUM INFUSION, NO REDDNESS NOTED. CALL LIGHT AND GAS TRANSFER OPERATOR PUMP BOTH IN REACH.
--- NOTE | 2021-07-28 04:55 | NUR ---
15 MLS EMPTIED FROM TERESA DRAIN, MORE SEROUS IN COLOR COMPARED TO PREVIOUS SHIFT. IV SITES X3 REMAIN WNL. pt PLEASANT AND INTERACTIVE WITH WEB DEVELOPMENT CONSULTANT. NO NEEDS VERBALIZED, CALL LIGHT IN REACH.
--- NOTE | 2021-07-28 05:38 | NUR ---
VSS AND I&O'S COMPLETE. FRESH WATER PROVIDED. SCHEDULED THYROID GIVEN, SEE EMAR. IV PUMP CLEARED, IV SITE WNL. FLUIDS INFUSING DIRECTED. NO FURTHER NEEDS, CALL LIGHT IN REACH. pt REPORTS HE HAD A VERY GOOD NIGHT AND SLEPT "VERY WELL".
--- NOTE | 2021-07-28 06:43 | NUR ---
SCHEDULED IV ABX AND 4 OF 4 POTASSIUM RIDER INFUSING DIRECTED, IV SITES X3 WNL. PER pt REQUEST, IV ABX INFUSING VIA RIGHT AC, AGREES TO USE LEFT AC FOR FOLLOWING INFUSIONS. NO FURTHER NEEDS, CALL LIGHT IN REACH.
--- NOTE | 2021-07-28 07:30 | NUR ---
report recieved from assistant casino shift manager RN, pt resting in bed, residence life coordinator pump setting verified, on cpoc RA, incision CDI, ostomy and adeline drain checked, pt denies any needs at the moment
--- NOTE | 2021-07-28 07:32 | NUR ---
DURING SHIFT REPORT, PUMP CLEARED FROM ELECTROMECHANICAL EQUIPMENT ASSEMBLER PUMP. SOON AFTER ELECTROMECHANICAL EQUIPMENT ASSEMBLER PUMP ALARMING, IN NEED OF NEW CARTRIDGE NO CARTRIDGE AVAILABLE IN [facility]. DAYSHIFT ZOEY NINO TO CALL PHARMACY. ELECTROMECHANICAL EQUIPMENT ASSEMBLER KEPYS LEFT WITH ZOEY NINO.
--- NOTE | 2021-07-28 08:38 | NUR ---
rn in room to start new endodontics dentist, witnessed by madelyn nursing home social worker giving pt his medications, pt up in chair
--- NOTE | 2021-07-28 09:13 | NUR ---
PT REFUSING LAB DRAW AT THIS TIME. PT IS ANXIOUS AND STATES THAT HE IS NAUSEATED. GIVEN 4 MG OF ZOFRAN AT THIS TIME BY STUDENT NURSE. CALL LIGHT WITHIN REACH. WILL CONTINUE TO MONITOR.
--- NOTE | 2021-07-28 11:20 | NUR ---
RN IN ROOM CHECK WITH PT IF IT IS OK TO GIVE INFRMATION TO BROTHER ALEXANDRA PER PT OK TO GIVE INFO, PT RESTING IN CHAIR NO NEEDS AT THE MOMENT
--- NOTE | 2021-07-28 11:44 | NUR ---
DR FLORES CALLED AND VERIFIED ELECTROMAGNET CRANE OPERATOR ORDERES WE HAD DISCUSSED STARTING ORAL TYLENOL AND GOING DOWN ON ELECTROMAGNET CRANE OPERATOR DOSE. ORDERS TO MAKES CHANGES
--- NOTE | 2021-07-28 12:18 | NUR ---
RN IN ROOM TO ADJUST CLAIM APPROVER DOSE, ABLE TO TAKE ORAL MEDS, NO OTHER NEEDS AT THE MOMENT
--- NOTE | 2021-07-28 12:44 | NUR ---
PT AWOKE TO MY VOICE-PT SITTING IN CHAIR WITH TOWELS AROUND HIS NECK. PT SAID HE HAS NOT SLEPT WELL AND WAS TRYING TO REST. GAVE ENCOURAGEMENT AND WILL CONTINUE TO FOLLOW
--- NOTE | 2021-07-28 14:36 | NUR ---
PT SITTING IN CHAIR WATCHING TV. PT HAD WANTED TO TAKE A WALK BUT HAS NOW CHANGED THIER MIND. CALL LIGHT WITHIN REACH, NO FURTHER NEED AT THIS TIME.
--- NOTE | 2021-07-28 15:22 | NUR ---
rn in to help pt ambulate able to do 2 laps around the unit
--- NOTE | 2021-07-28 15:30 | NUR ---
NEW DRESSING APPLIED TO ABD MIDLINE, 4X4 PLACED AND SITE CLEANED WITH SALINE. SITE LOOKS WELL APROXIMATED, NO S/S OF INFECTION.
--- NOTE | 2021-07-28 16:28 | NUR ---
RN IN ROOM TO HANG NEW IV BAG, PT SITTING IN CHAIR DENIES ANY NEEDS AT THE MOMENT
--- NOTE | 2021-07-28 16:43 | PATH ---
[facility] [address], [place] [address] Signed SPECIMEN(S): A SIGMOID AND PROXIMAL RECTUM SPECIMEN SOURCE: A. SIGMOID AND PROXIMAL RECTUM CLINICAL HISTORY: Pelvic abscess; perforated diverticulitis. FINAL PATHOLOGIC DIAGNOSIS: Sigmoid colon and proximal rectum, resection: - Focal perforated diverticulitis with peridiverticular abscess formation. - Background diverticulosis. - Six lymph nodes with no evidence of malignancy. - Viable surgical margins. - Negative for carcinoma. NAL:cml:C2NR MICROSCOPIC EXAMINATION: Histologic sections of all submitted blocks are examined by light microscopy. These findings, together with the gross examination, support the pathologic diagnosis. GROSS DESCRIPTION: The specimen, labeled "Leonardo Mesa," and designated on the requisition "sigmoid and proximal rectum," is received in formalin and consists of a previously opened and unoriented segment of large bowel that is 21.6 cm in length and has an internal circumference that ranges from 4.2 cm up to 6.5 cm. The external surface is red, focally shaggy and congested with areas of escobar-white exudate. The middle one third of the specimen is indurated. The mucosal surface is pink and finely granular with approximately one third of the specimen displaying a decreased folding pattern. Sectioning through the bowel wall reveals multiple diverticula containing brown, firm fecal material and one escobar-brown cavity within the adjacent mesentery that is a 1.5 cm in greatest dimension. This cavity communicates with one diverticulum. The bowel wall ranges in thickness from 1.0 cm up to 2.7 cm. Five possible lymph nodes are grossly identified. Shroud Line Tier sections are submitted in eight cassettes. Cassette summary: PATIENT NAME: LEONARDO MESA PATHOLOGY DATE OF : [birth year] REPORT #: [id number] PHYSICIAN: VESNA CASTORENA PCP: PANTERA YAO MD REPORT IS CONFIDENTIAL AND NOT TO BE RELEASED WITHOUT AUTHORIZATION [facility] [address] [address] Signed (A1-A2) resection margins, shave (A3-A4) diverticulum communicating with cavity within mesentery (A5-A6) additional diverticula (A7) three possible lymph nodes, submitted whole (A8) two possible lymph nodes each bisected one arbitrarily inked. FB (under the direct supervision of a pathologist) The Gross Description was prepared using a voice recognition system. The report was reviewed for accuracy; however, sound-alike word errors, addition and/or deletions may occur. If there is any question about this report, please contact Client Services. PERFORMING LABORATORY: The technical component was performed by [facility], [address] [place] [id number] (Program Services Planner: Carmenza Garcia MD; CLIA# [id number]). [facility] [address] [address] (CLIA# [id number]). Diagnostician: Latonia Light MD Pathologist Electronically Signed 07/28/2021 Copies: ~ PATIENT NAME: LEONARDO MESA PATHOLOGY DATE OF : [birth year] REPORT #: [id number] PHYSICIAN: VESNA CASTORENA PCP: PANTERA YAO MD REPORT IS CONFIDENTIAL AND NOT TO BE RELEASED WITHOUT AUTHORIZATION
--- NOTE | 2021-07-28 17:27 | NUR ---
RN IN ROOM TO TO START NEW CENTRIFUGAL CASTING MACHINE OPERATOR SYRINGE, DOSE VERIFIED BY MARIA GUADALUPE GREER
--- NOTE | 2021-07-28 19:07 | NUR ---
RN ASSITED PT TO AMBULATE 2 TIMES AROUND THE UNIT
--- NOTE | 2021-07-28 19:10 | NUR ---
SHIFT REPORT RECEIVED FROM TRUNG GREER. PT RESTING IN BED. DRESSINGS, TERESA AND OSTOMY WNL. NO OTHER NEEDS. CALL LIGHT IN REACH.
--- NOTE | 2021-07-28 20:45 | NUR ---
in to get vitals, scds in place, urinal emptied, ice for water filled, no further needs at this time
--- NOTE | 2021-07-28 21:30 | NUR ---
ASSESSMENT COMPLETED. PT STATES HE HAS 6/10 ABD PAIN, PARTS SALES REPRESENTATIVE IN USE, CPOX ON @ 96%. IVs WNL, IV FLUIDS INFUSING PER ORDER. LUNGS CLEAR, HEART TONES REGULAR. MIDLINE WNL, GUAZE CHANGED DUE TO SEROUS DISCHARGE. OSTOMY WNL, NO OUTPUT AT THIS TIME. IDALIA DRAIN WNL, NO OUTPUT AT THIS TIME. LAP SITES WNL, BANDAIDS DRY. ABD FIRM, TENDER, BOWEL TONES ACTIVE. PT REPORTS FLATUS. EDUCATION PROVIDED ON RELIEVING AIR FROM OSTOMY BAG. PT IS IRRITABLE AND DEPRESSED. STATES HE HAS NO ONE IN HIS LIFE AND IS NOT HAPPY WITH HIS CURRENT CONDITION, THERAPUTIC COMMUNICATION PROVIDED. CMS INTACT. IS EDUCATION PROVIDED. NO OTHER NEEDS. CALL LIGHT IN REACH.
--- NOTE | 2021-07-28 22:15 | NUR ---
pt requesting to move to the chair, assisted, pt also voiding in bathroom, no further needs at this time
--- NOTE | 2021-07-29 | NUR ---
IN TO ASSIST PT WITH A WALK IN THE HALLWAY, BACK TO THE CHAIR, ICE FILLED FOR WATER CUP
--- NOTE | 2021-07-29 02:20 | NUR ---
IN TO PROVIDE PT WARM BLANKET, ICE PACK, PRESSURE TESTING TECHNICIAN PUMP ALARMING, RN NOTIFIED, NO FURTHER NEEDS
--- NOTE | 2021-07-29 02:25 | NUR ---
ASSESSMENT COMPLETED, INCISIONS WNL. TERESA WNL. OSTOMY WNL. PT PAIN IN ABD 12/22, GRAIN ELEVATOR AGENT MED VIAL REPLACED. PRN TYLENOL PROVIDED. PT IRRITABLE, STATES HE HAS NOT SLEPT. NO OTHER NEEDS AT THIS TIME. CALL LIGHT IN REACH.
--- NOTE | 2021-07-29 04:00 | NUR ---
PT RESTING IN CHAIR. CPOX 96% ON RA. IV FLUIDS INFUSING PER ORDER. CALL LIGHT IN REACH.
--- NOTE | 2021-07-29 08:00 | NUR ---
REPORT RECEIVED FROM NIGHT RN AND PT. CARE RESUMED. PT. IS DROWSY ANDIRRITABLE. ORIENTED TO ALL. IV SITES WNL AND FLUSH WELL. MIDLINE INCISION DRAINING SEROUS YELLOW FLUID AND GAUZE CHANGED. DOLORES INTACT. TERESA DRAINING SEROSANGUINOUS FLUID. OSTOMY APPLIANCE INTACT AND SMALL AMOUNT OF RED DRAINAGE IN THE BAG. PT. REPORTS MILD PAIN AND USING MAINSPRING STRIP GAUGER. PT. CPOX IN PLACE. PT. UP TO AMBULATE WITH HOME ENERGY INSPECTOR.
--- NOTE | 2021-07-29 08:52 | NUR ---
PT WAS RETURNING FROM WALKING AROUND NURSES STATIONS WITH SAMANTHA RAMAN. BLINDS OPENED, WHITE BOARD UPDATED. COLD WASHCLOTH PROVIDED INSTEAD OF A WARM ONE, PER PT'S REQUEST. PT IN CHAIR WITH YOGURT. CALL LIGHT WITHIN REACH, NO FURTHER NEEDS AT THIS TIME.
--- NOTE | 2021-07-29 09:38 | NUR ---
PT IN RECLINER WATCHING TV AND NIBBLING OFF OF BOB PUDDING. FRESH ICE PACKS PROVIDED. CALL LIGHT WITHIN REACH, NO FURTHER NEEDS AT THIS TIME.
--- NOTE | 2021-07-29 14:08 | NUR ---
PT VERY IRRITABLE. PT KEPT MAKING COMMENTS SUCH "NO ONE IS REALLY TELLING ME ANYTHING" "SOUNDS LIKE THERE REALLY ISNT MUCH COMMUNICATION BETWEEN THE NURSES AND MY DOCTOR". PT REFUSED LUNCH. RN GEORGE AWARE. PT NOT HAPPY WITH THIER RATE OF RECOVERY OR THAT THEY ARE STILL HERE. CALL LIGHT WITHIN REACH, NO FURTHER NEEDS AT THIS TIME.
--- NOTE | 2021-07-29 14:15 | NUR ---
ROUNDING ON PT. AND ADMIN. REGLAN. PT. IS AGGITATED AND REFUSES TO ANSWER QUESTIONS INITIALLY. PT. C/O NOT RECIEVING FOOD HE LIKES AND BEING UNABLE TO EAT CANNED SOUP FROM HOME DUE TO NOODLES. ENCOURAGE TO AMBULATE BUT REFUSES TO EAT OR WALK. PT. STATES IT TAKES TOO LONG FOR STAFF TO HELP HIM UNPLUG IV WHEN HE CALLS. GAUZE TO MIDLINE INCISION HAS A MODERATE AMOUNT OF YELLOW DRAINAGE. TERESA PATENT AND OSTOMY DRAINING A SMALL AMOUNT OF RED DRAINAGE. WHEN ASKED IF HE NEEDS HELP WITH ANYTHING PT STATES HE IS NOT GOING TO WALK OR EAT AND WILL WAIT TO TALK TO THE DOCTOR ABOUT HIS TREATMENT FROM STAFF. PT. LEFT RESTING WITH CALL LIGHT IN REACH.
--- NOTE | 2021-07-29 14:48 | NUR ---
pt amb in room with this rn, chicken broth from home provided strained - also hot chocolate. pt voiding well - adeline drained and stripped. sm amt of serous drainage in ostomy bag. enc. pt to walk - sitting up in now.
--- NOTE | 2021-07-29 18:32 | NUR ---
PT SITTING IN CHAIR WITH PHONE AND TV. PT SAYS HIS BANDAGE DOESNT FEEL LIKE IT'S FITTING RIGHT. RN GEORGE NOTIFIED. CALL LIGHT WITHIN REACH, NO FURTHER NEEDS AT THIS TIME.
--- NOTE | 2021-07-29 18:53 | NUR ---
PT. REQUESTS ASSISTANCE WITH MIDLINE DRESSING. SATURATED WITH SEROUS DRAINAGE. GAUZE CHANGED. OSTOMY BAG EMPTIED OF BROWN THICK LIQUID. LEFT RESTING WITH CALL LIGHT IN REACH.
--- NOTE | 2021-07-29 19:45 | NUR ---
REPORT RECEIVED FROM DAY SHIFT RN. PT LYING IN BED ALERT AND ORIENTED. DENIES NEEDS. WHITE BOARD UPDATED. CALL LIGHT IN REACH.
--- NOTE | 2021-07-29 20:45 | NUR ---
EVENING ASSESSMENT COMPLETE. SCHEDULED MEDS ADMINISTERED PER EMAR. PT DENIES NAUSEA. REPORTS ABD PAIN TOLERABLE 3/10. ABD SOFT AND NON DISTENDED. MIDLINE INCISION WELL APPROXIMATED. GAUZE DRESSING WITH SCANT AMOUNT SEROSANG DRAINAGE IN PLACE. NO REDNESS OR DRAINAGE NOTED. OSTOMY WITH LIQUID BROWN DRAINAGE. TERESA WITH 10ML SEROSANG DRAINAGE. PT SITTING IN RECLINER. SOUP, FRESH WATER, AND JELLO PROVIDED PER REQUEST. DISCUSSED WITH PT TO AMB THIS EVENING AFTER SOUP. PT AGREEABLE HE WANTED TO SEE HIS MOTHER WHO IS ON THE UNIT. NO FURTHER NEEDS AT THIS TIME. CALL LIGHT IN REACH.
--- NOTE | 2021-07-29 21:30 | NUR ---
BATHROOM CALL LIGHT SOUNDING. IN ROOM TO ASSIST. PT TRYING TO EMPTY OWN OSTOMY. PT EXPRESSED FRUSTRATIONS AT OPENING BAG AND STATES "I FEEL LIKE I'M GOING TO PASS OUT". ASSISTED PT TO RECLINER. ASSISTED PT TO EMPTY OSTOMY OF PUDDING LIKE BROWN DRAINAGE. THERAPEUTIC COMMUNICATION PROVIDED. PT RECEPTIVE. PT DOES NOT FEEL LIKE AMBULATING AT THIS TIME. WOULD LIKE TO WAIT UNTIL PRN FOR PAIN IS ADMINISTERED AT 2230. PT SITTING IN RECLINER WITH FEET ELEVATED AT THIS TIME.
--- NOTE | 2021-07-29 22:49 | NUR ---
PT UP IN BATHROOM TO HAVE BOWEL MOVEMENT. BACK TO BED, KERRY FAIR. PT REPORTS ABD PAIN 12/22. PRN ADMINISTERED PER EMAR. ASSISTED PT TO REPOSITION IN BED FOR COMFORT. FRESH ICE PROVIDED.
--- NOTE | 2021-07-30 00:18 | NUR ---
PT RESTING IN BED WITH EYES CLOSED. RESPIRATIONS EVEN. CALL LIGHT IN REACH.
--- NOTE | 2021-07-30 02:32 | NUR ---
PT RESTING WITH EYES CLOSED. AWAKENS WHEN THIS RN ENTERS ROOM. SCHEDULED MEDS ADMINISTERED. NEW BAG IVF INFUSING WNL. URINAL EMPTIED. NO FURTHER NEEDS.
--- NOTE | 2021-07-30 04:42 | NUR ---
VS AND I&O COMPLETE. OSTOMY WITH 225 ML BROWN LIQUID. TERESA WITH 15ML SEROSANG DRAINAGE. GAUZE ON MIDLINE INCISION CHANGED DUE TO SEROUS DRAINAGE. MIDLINE INCISION WELL APPROXIMATED WITH DOLORES. NO REDNESS OR DRAIANGE NOTED. BOWEL TONES ACTIVE. ABD SOFT. PT DENIES NAUSEA. REPORTS ABD PAIN 6/10. PRN ADMNISTERED FOR PAIN PER EMAR. PIV IN LEFT AC INFILTRATED. DC'D WNL. WARM COMPRESS AND PILLOWS TO ELEVATE ARM. PT DENIES FURTHER NEEDS AT THIS TIME. CALL LIGHT IN REACH.
--- NOTE | 2021-07-30 07:05 | NUR ---
REPORT RECEIVED FROM ZOEY DIAZ. pt RESTING IN BED WITH LIGHTS OFF IN ROOM. NO DISTRESS NOTED. IVF INFUSING ORDERED.
--- NOTE | 2021-07-30 08:32 | NUR ---
pt AWAKENS TO VOICE. RESTING IN BED. COMPLAINS OF CHRONIC BACK PAIN FROM SCOLIOSIS. 1P SBA TO CHAIR. ICE PACK PROVIDED FOR BACK. IV SITE FLUSHED WNL. IV IN RIGHT AC D/C'D WNL PER POLICY. pt COMPLAINS OF PAIN WITH TAPE REMOVAL. ASSESSMENT COMPLETE. BOWEL TONES ACTIVE X 4, ABD SOFT, DISTENDED. GREEN OUTPUT NOTED IN OSTOMY. TERESA DRAIN TUBING STRIPPED, SMALL AMT SS DRAINAGE IN BULB. CHOCOLATE ENSURE ORDERED FOR pt PER REQUEST. CALL LIGHT PROVIDED. VSS. PLAN WITH pt TO SHOWER AFTER ENSURE. NEW GOWN IN PLACE. URINAL EMPTIED.
--- NOTE | 2021-07-30 09:27 | NUR ---
CHECKED ON pt. UP IN CHAIR. RESTING WITH EYES CLOSED, BREATHING UNLABORED NO DISTRESS NOTED.
--- NOTE | 2021-07-30 10:52 | NUR ---
CALL LIGHT ANSWERED. PRN PAIN MEDICATION ADMINISTERED FOR 3/10 REPORTED ABDOMINAL PAIN AT INCISION. JELLO PROVIDED. pt DRANK SMALL AMT ORANGE JUICE AND ENSURE "NONE OF IT TASTED GOOD". NO SUGGESTIONS FOR WHAT SOUNDS GOOD TO HIM, DIMINISHED APPETITE. pt VERBALIZES THAT HE WILL USE CALL LIGHT WHEN READY FOR SHOWER.
--- NOTE | 2021-07-30 11:39 | NUR ---
MD IN ROOM ASSESSING pt. QUESTIONS ANSWERED. IV SL PER MD VERBAL ORDER WNL. LUNCH ORDER PLACED, ADVANCED TO REGULAR DIET. UP IN CHAIR. CALL LIGHT IN REACH.
--- NOTE | 2021-07-30 12:47 | NUR ---
pt OUT OF SHOWER. GAUZE REPLACED AT LOWER INCISION PER pt REQUEST FOR ANY DRAINAGE. NEW BANDAID ON LAP SITE DOLORES IN UPPER ABD, CATCHING ON GOWN. UP IN CHAIR. CALL LIGHT IN REACH.
--- NOTE | 2021-07-30 14:06 | NUR ---
pt IN MOTHERS ROOM VISITING. INDEPENDENT BACK TO ROOM. ATE 1/6 OF SANDWICH. STATES HIS BROTHER WILL BRING HIM A SANDWICH FROM THE STORE, DOES NOT LIKE BREAD. WARM BLANKET PROVIDED. CALL LIGHT IN REACH.
--- NOTE | 2021-07-30 14:12 | NUR ---
PT HAS JUST RETURNED FROM WALKING INDEPENDENTLY AROUND NURSES STATIONS, AND TO AND FROM RM 113, WHERE HIS MOTHER IS. CALL LIGHT WITHIN REACH, NO FURTHER NEEDS AT THIS TIME.
--- NOTE | 2021-07-30 17:07 | NUR ---
pt UP TO RESTROOM INDEPENDENTLY. ABLE TO EMPTY AND CLOSE OWN COLOSTOMY BAG, 100 MLS GREEN DRAINAGE. URINAL EMPTIED. 30 MLS SEROSANGUINOUS DRAINAGE EMPTIED FROM TERESA DRAIN. BACK TO CHAIR. VS COMLPETE, STABLE. ASSESSMENT COMPLETE. BOWEL TONES ACTIVE, ABD TENDER IN LLQ PER pt, RATES PAIN 2-3/10 "NOT BAD". PRN TYLENOL ADMINSITERED REQUESTED. pt OUT OF ROOM TO WALK IN HALLWAY, VISIT MOTHER. LINENS CHANGED.
--- NOTE | 2021-07-30 18:06 | NUR ---
CHECKED ON pt. SITTING UP IN BED WATCHING TV. SANDWICH MOVED NEXT TO pt, ICE CUP PROVIDED, BOOST DRINKS PLACED IN REFRIGERATOR PER REQUEST. CALL LIGHT IN REACH. NO ADDITIONAL REQUESTS.
--- NOTE | 2021-07-30 19:25 | NUR ---
REPORT RECEIVED FROM DAY SHIFT RN. PT ALERT AND ORIENTED AMBULATING THE GRANDA INDEPENDENTLY. DENIES NEEDS AT THIS TIME.
--- NOTE | 2021-07-30 20:42 | NUR ---
EVENING ASSESSMENT COMPLETE. SCHEDULED MEDS ADMINISTERED PER EMAR. PT REPORTS ABD PAIN IS TOLERABLE AT THIS TIME. DENIES NAUSEA. MIDLINE ABD INCISION WELL APPROXIMATED WITH DOLORES IN PLACE. ABD SOFT. BOWEL TONES ACTIVE. GAUZE REPLACED OVER INCISION DUE TO SEROUS DRAINAGE. OSTOMY WITH 125 ML BROWN STOOL. PT ABLE TO INDEPENDENTLY EMPTY OSTOMY. TERESA WITH SCANT AMOUNT SEROSANG DRAINAGE. JELLO AND ICE PACKS PROVIDED. PT WITH MULTIPLE QUESTIONS REGARDING DISCHARGE AND OSTOMY CARE AT HOME. QUESTIONS ANSWERED. NO FURTHER NEEDS. CALL LIGHT IN REACH.
--- NOTE | 2021-07-31 00:33 | NUR ---
CALL LIGHT ANSWERED. PT NOTIFIED THIS RN HE HAD BEEN IN BR TO EMPTY OSTOMY INDEPENDENTLY AND VOID. 100 ML BROWN DRAINAGE EMPTIED. GAUZE DRESSING OVER MIDLINE DRESSING REPLACED PER PT REQUEST DUE TO SMALL AMOUNT SEROUS DRAINAGE. PT REPORTS ANXIETY RELATED TO DISCHARGE. REASSURANCE PROVIDED.
--- NOTE | 2021-07-31 02:17 | NUR ---
PT RESTING IN BED WITH EYES CLOSED. RESPIRATIONS EVEN. CALL LIGHT IN REACH.
--- NOTE | 2021-07-31 04:42 | NUR ---
PT RESTING IN RECLINER. RESPIRATIONS EVEN. CALL LIGHT IN REACH.
--- NOTE | 2021-07-31 05:09 | NUR ---
VS AND I&O COMPLETE. PT REPORTS ABD PAIN 10/22. PRN FOR PAIN ADMINISTERED PER EMAR. PT SITTING IN RECLINER. FRESH ICE PACKS AND ICE WATER PROVIDED. DENIES FURTHER NEEDS. CALL LIGHT IN REACH.
--- NOTE | 2021-07-31 09:22 | NUR ---
Patient up in chair at this time, a&ox4. Patient denies nausea and reports his pain if tolerable. Abdominal incision is healing well, mckenna intact, dried scant serous drainage noted on inferior portion of midline incision dressing. ABD is soft to touch, pt reports self drainage of ostomy bag. TERESA intact, patent, closed to suction. Patient refused his heparin, as he states he is sick and tired of being poked. This RN discussed the risks of doing this, explained to patient that if he does not take the heparin he is at an even further risk for post operative blood clots-pt reports he understands. Patient states he did not sleep well here. This RN asked patient what I can get or do for him to make his stay here more comfortable, pt has no ideas at this time. Patient given a boost this morning as he declined his food from kitchen. Encouraged patient to drink lots of water, pt receptive. Encourage patient to get up and walk in hallway after he drinks his boost, patient appears receptive to this plan. Will check back with patient to monitor.
--- NOTE | 2021-07-31 09:53 | NUR ---
PER KARLIE FLORES HAS SPOKE WITH THE PATIENT REGARDING HIS UNWILLINGNESS TO COMPLETE THE APPLICATION FOR [facility] AT THIS TIME. PER KARLIE GREER PATIENT HAS DECIDED HE WOULD LIKE TO COMPLETE THE PROCESS SO HE IS UNABLE TO RECV OSTOMY SUPPLIES. MESSAGE LEFT FOR CK LICEA TO COMPLETE ASSIST PATIENT WITH COMPLETING APPLICATION PROCESS.
--- NOTE | 2021-07-31 10:19 | NUR ---
PATIENT SITTING UP IN CHAIR TALKING ON PHONE. VITALS AND I&O'S CHARTED. FRESH WATER GIVEN. CALL LIGHT IN REACH. NO FURTHER NEEDS AT THIS TIME.
--- NOTE | 2021-07-31 12:20 | NUR ---
Tylenol 1000mg po admin for reports of 5/10 abdominal pain.
--- NOTE | 2021-07-31 12:43 | NUR ---
Patient reports he has been approved for OHP.
--- NOTE | 2021-07-31 12:52 | NUR ---
SPOKE WITH CK LICEA IN THE AUTHORIZATION DEPARTMENT. PATIENT HAS COMPLETED HIS [facility] APPLICATION AND IS APPROVED AT THIS TIME. KARLIE GREER NOTIFIED.
--- NOTE | 2021-07-31 14:26 | NUR ---
PATIENT IN CHAIR WATCHING TV AT THIS TIME. VITALS AND I&O'S CHARTED. CALL LIGHT IN REACH. NO FURTHER NEEDS AT THIS TIME.
[2021-07-31] MEDS ORDERED: CIPROFLOXACIN500 MG PO (15:04)
[2021-07-31] MEDS ORDERED: METRONIDAZOLE250 MG PO (15:06)
[2021-07-31] MEDS ORDERED: ACETAMINOPHEN500 MG PO (15:07)
[2021-07-31] MEDS ORDERED: PANTOPRAZOLE SO40 MG PO (15:07)
[2021-07-31] MEDS ORDERED: PERCOCET 7.5-31 EACH PO (15:08)
--- NOTE | 2021-07-31 16:00 | NUR ---
Patient educated on ostomy care and was able to self demonstrate and change his own appliance with this RN. well drill operator helper cable tool in room during educations as well. Patient reports he understands how to remove, clean and apply new ostomy. Encouraged patient to call the medical floor and or supervisor carton and can supply if he has further questions or forgets how to do his ostomy care. Step by step printed instruction provided to patient as well. Extra ostomy appliance supplies sent with patient to take home.
--- NOTE | 2021-08-01 16:55 | NUR ---
Updated by Rhianna at DME they need and ICD 10 code, H&P, DC summary, surgery notes, and progress notes. All faxed to [facility].
== END 2021-07-31 17:02 | disposition home or self-care (01) | DRG 329 ==
LOC: ED 03:47 → MS 03:49
PROVIDERS: ADMIT Surgery; ATTEND Surgery
PROC: 0DJD4ZZ Inspection of Lower Intestinal Tract, Percutaneous Endoscopic Approach (ICD-10-PCS; principal; 2021-07-27)
PROC: 0DBN0ZZ Excision of Sigmoid Colon, Open Approach (ICD-10-PCS; 2021-07-27)
PROC: 0D1N0Z4 Bypass Sigmoid Colon to Cutaneous, Open Approach (ICD-10-PCS; 2021-07-27)
PROC: 0DBP0ZZ Excision of Rectum, Open Approach (ICD-10-PCS; 2021-07-27)
DX: K57.20 Diverticulitis of large intestine with perforation and abscess without bleeding (principal); K65.9 Peritonitis, unspecified; Z20.822 Contact with and (suspected) exposure to COVID-19; F17.210 Nicotine dependence, cigarettes, uncomplicated; E87.6 Hypokalemia; E66.9 Obesity, unspecified; Z68.30 Body mass index [BMI] 30.0-30.9, adult; Z98.890 Other specified postprocedural states; Z88.8 Allergy status to other drugs, medicaments and biological substances; Z79.2 Long term (current) use of antibiotics
CPT/HCPCS: 00840; 74177; 76705; 80048; 80053; 81001; 83690; 84132; 85025; 87070; 87075; 87205; 94762; 96375; 96376; 99285-25; C9803; G0378; J0131; J0696; J1100; J1170; J1644; J1790; J1885; J2185; J2250; J2270; J2405; J2550; J2704; J2765; J2795; J3475; J3480; J7030; J7060; J7121; Q9967; U0003

== ENCOUNTER 2021-12-20 08:35 | Inpatient (IN) | payer OTHER ==
[~2021-12-20] VITALS: Ht 167.6 cm; Wt 86.4 kg
[~2021-12-20 08:35] MED LIST changes: +ACETAMINOPHEN500 MG PO; +CIPROFLOXACIN500 MG PO; +METRONIDAZOLE250 MG PO; +PANTOPRAZOLE SO40 MG PO; +PERCOCET 7.5-31 EACH PO
--- NOTE | 2022-01-04 06:58 | NUR ---
2ND IVF BAG HUNG AT [facility]. SITE BENIGN.
--- NOTE | 2022-01-04 11:08 | NUR ---
PT ALERT, ORIENTED, RATHER QUIET AND RESPECTFUL. GAVE ENCOURAGEMENT TO PT-REQUESTED PRAYER. WILL FOLLOW
--- NOTE | 2022-01-04 11:34 | NUR ---
01/04/22 1134 Maria R Maguire 1127 PATIENT ARRIVES TO PACU UNRESPONSIVE TO PAIN. REQUIRES OCCASIONAL JAW THRUST. RESP EVEN AND UNLABORED, MASK AT 8 LITERS. 1132 PATIENT SLEEPING WITH AWAKENS WITH REPEATED VERBAL STIMULI, BACK TO SLEEP WHEN NOT STIMULATED. RESP EVEN AND UNLABORED, LIGHT SNORE. MASK AT 6 LITERS.
--- NOTE | 2022-01-04 12:46 | NUR ---
PT ARRIVES TO M/S FLOOR VIA BED BY PACU STAFF. PT ASLEEP AND SNORING BUT WAKES EASILY TO SOUND OF NAME. VS STABLE. PT REPORTS PAIN 9/10 AT INCISION SITE. RN TO REVIEW EMAR FOR AVAILABLE PRN COVERAGE. MIDLINE INCISION DRESSING SATURATED WITH BLOOD AT LOWER PORTION, PACU NURSE REPORTS MD AWARE. ABDOMEN TENDER AND MILDLY DISTENDED. PT ORIENTED TO CALL LIGHT ON BED.
--- NOTE | 2022-01-04 13:11 | NUR ---
PT CONTINUES TO REST WITH INTERMITANT SNORING BUT WAKES EASILY WITH TOUCH OR SOUND. CONTINUOUS FLUIDS STARTED PER ORDER, IV SITE WNL. PRN TORADOL ADMINISTERED FOR 9/ PAIN, MORPHINE HELD AT THIS TIME R/T PTS RR AND DROWSYNESS. CPOX IN PLACE AND WORKING. TERESA SITE DRAINING SEROUS FLUID. SCDS IN PLACE AND WORKING. PT REQUESTS SIPS OF WATER. DENIES FURTHER NEEDS AT THIS TIME. CALL LIGHT IN REACH.
--- NOTE | 2022-01-04 14:07 | NUR ---
RN IN ROOM TO ROUND ON PT - PT WAKES EASILY TO SOUND UPON ENTERING VS STABLE. PT REPORTS PAIN IS 7/10, DENIES NAUSEA. IV SITE TOLERATING FLUIDS WITHOUT DIFFICULTY. ICE PACK APPLIED TO ABD. SCDS IN PLACE.
--- NOTE | 2022-01-04 14:57 | NUR ---
RN IN ROOM TO ROUND ON PT - RESTING COMFORTABLY WITH EVEN RR UPON ENTERING THE ROOM. PT REPORTS PAIN IS STILL 01/21 - SCHEDULED TYLENOL ADMINISTERED. PT REPOSISTIONED IN BED, INSTRUCTED ON BEST MOVEMENT POST OP WITH INCISIONS. PT INSTURCTED ON IS USE, DEMONSTRATED APPROPRIATE USE. CALL LIGHT IN REACH.
--- NOTE | 2022-01-04 16:05 | NUR ---
RN IN ROOM TO ASSESS PT - PT SNORING UPON ENTRY. 2MG MORPHINE ADMINISTERED FOR PAIN COVERAGE. PT STATES HE "DOESNT KNOW IF HE CAN MOVE". REINFORCED EDUCATION REGARDING MOVEMENT POST OP AND HEALING PROCESS. ICE PACK IN PLACE. IS USED, CPOX IN PLACE, SPO2 MID 90'S ON RA WHILE SLEEPING. CALL LIGHT IN REACH.
--- NOTE | 2022-01-04 16:35 | NUR ---
MED REC COMPLETE
--- NOTE | 2022-01-04 17:47 | NUR ---
RN ROUNDING ON PT - PT AWAKE IN BED TALKING TO DENTAL SURGEON UPON ENTRY. PT STATES PAIN IS 5/10 AT INCISION SITE AND IMPROVING WITH MEDS AND ICE. PT TOLERAING SIPS OF CLEAR LIQUID DINNER TRAY WITHOUT NAUSEA. ENCOURAGED DEEP BREATHING WITH IS, PT IS AGREEABLE.
--- NOTE | 2022-01-04 18:34 | NUR ---
RN ROUNDING ON PT - PT RESTING IN BED ON PHONE WITHOUT DISTRESS. CALL LIGHT AND TABLE IN REACH.
--- NOTE | 2022-01-04 19:00 | NUR ---
shift report received from etta wills, pt awake and resting in bed. on ra, spo2 94% and hr 91. rr even and unlabored, no distress noted. hutchinson patent, voiding qs. midline dressing intact, some shadowing noted, serosanguineous in color. iv site wnl, fluids infusing wnl. call light in reach, no needs verbalized. board updated.
--- NOTE | 2022-01-04 20:30 | NUR ---
IN TO GET VITALS, PT AWAKES TO VOICE, DUNNE CARE COMPLETED AT THIS TIME
--- NOTE | 2022-01-04 21:20 | NUR ---
assessment complete, scheduled meds given (see emar). pt reports tolerable 5/10 pain, midline dressing remains unchanged, no new shadowing noted, adeline drain emptied for 30mls output, serosanguineous in color. bowel tones rare with auscultation, pt denies nausea. fresh ice pack in place. pt declines ambulation, but agrees to try and stand or sit on edge of bed later this evening. education provided, is at bedside. pt reports he recently used "within 20 minutes". verbal education provided to use q1h 10x when awake. no further needs, scd's in place. call light in reach.
--- NOTE | 2022-01-04 22:07 | NUR ---
SCHEDULED TYLENOL GIVEN FOR REPORTED 6/10 PAIN IN ABD, SEE EMAR. NO FURTHER NEEDS, CALL LIGHT IN REACH.
--- NOTE | 2022-01-04 23:10 | NUR ---
ROUNDED ON pt, pt RESTING QUIETLY IN BED WITH EYES CLOSED. ON RA, RR EVEN AND UNLABORED, NO DISTRESS NOTED. CALL LIGHT IN REACH, WILL CONTINUE TO MONITOR.
--- NOTE | 2022-01-05 01:00 | NUR ---
rounded on pt, pt resting in bed with eyes closed and on ra. rr even and unlabored, no distress noted. call light in reach.
--- NOTE | 2022-01-05 03:00 | NUR ---
scheduled iv abx infusing as directed, iv site wnl. pt reports back pain at 7/10, chronic. rates abd pain borderline tolerable at 5/10. pt discusses wishes to try and stay away from narcotics if possible, discussed poc regarding pain control. instructed pt to use call light if pain worsens or pain medication is needed, pt verbalized understanding. scd's in place, pt up to ambulate, tolerated well, but is slow moving. pt ambulated near bed. denied dizziness. no further needs, ice pack in place.
--- NOTE | 2022-01-05 03:31 | NUR ---
IN TO PROVIDE PT A WARM BLANKET, NO FURTHER NEEDS AT THIS TIME
--- NOTE | 2022-01-05 04:50 | NUR ---
ROUNDED ON pt, pt RESTING QUIETLY IN BED WITH EYES CLOSED. RR EVEN AND UNLABORED, CPOX REMAINS IN PLACE. SPO2 AND HR WNL. CALL LIGHT AND OTHER BELONGINGS IN REACH.
--- NOTE | 2022-01-05 07:33 | NUR ---
REPORT RECEIVED FROM NIGHT RN - PT RESTING IN BED AWAKE - DENIES NEEDS AT THIS TIME. CALL LIGHT IN REACH.
--- NOTE | 2022-01-05 08:06 | NUR ---
RN IN ROOM TO ADMINISTER SCHEDULED MEDICATIONS AND ASSESS PT - PT AWAKE IN BED UPON ENTRY. PT RATES PAIN 6/10, PRN TORADOL PROVIDED FOR THIS. CONTINUED EDUCATION REGARDING PAIN CONTROL AND EXPECTATIONS AFTER MAJOR ABD SURGERY. BOWEL TONES ACTIVE X4, NO FLATUS REPORTED. ENCOURAGED AMBULATION AT BEDSIDE. DRESSINGS INTACT, WITH NO NEW DRAINAGE, TERESA DRAINING EXPECTED. PT DENIES NAUSEA, NOT HUNGRY FOR BREAKFAST. IV SITE TOLERATING ABX AND FLUID INFUSION WITHOUT DIFFICULTY, SITE WNL. PT EXPRESES ANXIETY ABOUT AMBULATING AND DUNNE CATH REMOVAL, WILL CONTINUE TO EDUCATE AND ENCOURAGE HEALTHY COPING MECHANISMS. CALL LIGHT IN REACH.
--- NOTE | 2022-01-05 09:30 | NUR ---
RN ROUNDING ON PT - ASLEEP IN BED, RR EVEN AND UNLABORED, CPOX ON - SP02 97%. CALL LIGHT AND TABLE IN REACH.
--- NOTE | 2022-01-05 10:20 | NUR ---
Spoke with Ben. He returned for ostomy take down. Pt denies needs and plans to return to his mom's house. Mom and brother, Laz, will assist him if needed. He denies need for any DME.
--- NOTE | 2022-01-05 10:30 | NUR ---
PT UP OUT OF BED AND AMBULATING TO NURSES STATION AND BACK TO ROOM. TOLERATED THIS WITH MODERATE BUT EXPECTED PAIN. NOW IN CHAIR WITH ICE PACK, PRN MORPHINE ADMINISTERED. PT DENIES HAVING PASSED ANY GAS BUT FEELS GAS "WORKING" IN HIS BOWELS. CALL LIGHT IN REACH.
--- NOTE | 2022-01-05 11:10 | NUR ---
WHILE PATIENT IS SITTING UP IN HIS CHAIR. I CHANGED HIS BED LINENS.
--- NOTE | 2022-01-05 11:19 | NUR ---
PT ALERT, ORIENTED AND SITTING IN CHAIR WITH ICE BAG ON ABDOMEN. PT STATES PAIN IS A 5, AND HAD JUST BEEN GIVEN MORPHINE. PT ALSO MENTIONED HE WILL BE GLAD TO HAVE THE OSTEMY BAG DC'D AND CATHETHER REMOVED ALSO. BLESSING GIVEN AND ENCOURAGEMENT. WILL FOLLOW
--- NOTE | 2022-01-05 11:21 | NUR ---
RN ROUNDING - PT SITTING UP IN CHAIR ON PHONE, NO DISTRESS NOTED. CALL LIGHT IN REACH.
--- NOTE | 2022-01-05 12:43 | NUR ---
RN ROUNDING ON PT - SITTING IN CHAIR WATCHING TV ON HIS PHONE. PT STATES HE IS NOT HUNGRY BUT SIPPING ON CLEAR LIQUID TRAY. DENIES NAUSEA. RATES PAIN 5/10 - DENIES NEED FOR PRN FOR THIS, EDUCATION PROVIDED REGARDING EXPECTATIONS WITH POST OP PAIN. CALL LIGHT IN REACH.
--- NOTE | 2022-01-05 13:25 | NUR ---
RN IN ROOM TO ASSESS PT AND ADMINISTER SCHEDULED MEDS - PT RESTING IN CHAIR AWAKE UP ON ENTRY. LEFT QUADRANDT ABDOMINAL DRESSINGS CHANGED PER ORDER. PT TOLERATED THIS BUT WITH POOR PAIN COPING. PT HESITANT TO TAKE PRN MORPHINE HOWEVER. TERESA DRAIN IN PLACE - DRAINING ASSESSMENT OTHERWISE UNCHANGED FROM PREVIOUS, NO GAS PASSED YET.
--- NOTE | 2022-01-05 14:12 | OR ---
[facility] [address], [place] [address] Signed DATE OF OPERATION: 01/04/2022 SURGEON: Kori Flores MD PREOPERATIVE DIAGNOSES: 1. 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 2. Obesity and smoking. POSTOPERATIVE DIAGNOSES: 1. 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 2. Obesity and smoking. PROCEDURE: 1. Exploration of abdomen with extensive lysis of adhesions of the small bowel. 2. Takedown of end left colostomy with partial colectomy and end-to-end coloproctostomy (prolonged, complicated and difficult). 3. Splenic flexure mobilization. ANESTHESIA: General endotracheal, , Gibson J CarlosZEHRA monroy INDICATIONS: This 31-year-old white man was admitted through the emergency room several months ago with severe left-sided abdominal pain and findings consistent with severe acute diverticulitis with peridiverticular abscess that was relatively small. He had no evidence of generalized free air. On July 21, 2021, he underwent laparoscopy with attempts at peritoneal lavage and placement of drain. However, he had dense interloop adhesions and adherent fibrinous peel for which a laparoscopic approach was unsuccessful. On July 25 due to lack of progress, he underwent laparotomy with sigmoid resection and end colostomy and Santi's pouch. He had extreme inflammation within the abdominal cavity as well as abdominal wall obesity. He has recovered fully from the operation and is considered a candidate for takedown of the colostomy and partial colectomy as necessary. Special risk of bleeding, infection, anastomotic leak, and other unforeseen complications was reviewed with him in detail and he wishes to proceed. Notably, two days ago, he underwent colonoscopy by me of both the rectal stump as well Electronically Signed By: KORI FLORES MD 01/05/22 1412 PATIENT NAME: LEONARDO ACOSTA OPERATIVE REPORT DATE OF : [birth year] REPORT #: [id number] PHYSICIAN: KORI FLORES MD PCP: SHAUNA YAO MD REPORT IS CONFIDENTIAL AND NOT TO BE RELEASED WITHOUT AUTHORIZATION [facility] [address] [place] [id number] Signed as the proximal colon via the colostomy site itself. He had no contraindication to resection, specifically no malignancy or other abnormality. There is only one diverticulum seen. The distal segment had some mucoid stool retention but not much and though he did have a small amount of diversion proctitis it was not severe. The patient understands the risk of bleeding, infection, and anastomotic failure and other unforeseen complications and wished to proceed with operation. FINDINGS: He did have interloop adhesions of the small bowel significantly. This required extensive lysis of adhesions prolonging the case quite a bit. The left colon was quite viable as was the ostomy itself. Mobilization of splenic flexure allowed for most of the colon to be brought down to the pelvis to allow for an end-to-end coloproctostomy. The distal stump contained intraperitoneal rectum, but no retention of sigmoid proper. It was easily identified by long Prolene sutures that had remained in place. The anastomosis was watertight, widely patent and completely . The abdominal wall defect was repaired in two layers of PDS suture, a running layer internally and an interrupted layer externally. There were no complications. The operation was prolonged, complicated, and difficult lasting from approximately 8:00 a.m. to 11:15 a.m. DESCRIPTION OF PROCEDURE: The patient was brought to the operating room, given a general endotracheal anesthetic. He had undergone a full bowel prep including oral antibiotics. Antibiotic cefoxitin was administered in the operating room as his preop antibiotic already administered was Ancef. A Rush catheter was placed. Abdominal wall was clipped and prepared with a chlorhexidine solution and draped sterilely. The previous midline incision extended somewhat above the umbilicus. The colostomy on the left side of the abdomen was relatively flat, not sunken, not ischemic and quite viable. An Ioban drape was placed. A midline incision was made initially below the umbilicus. Dissection carried through a relatively thick abdominal wall pannus allowing for entry into the abdomen. Omental adhesions were beneath the incision itself. These were freed with blunt electrocautery dissection. The colostomy segment could easily be identified traversing the left upper abdomen. Omental adhesions were freed with care. Small bowel loops were quite involved with interloop adhesions. These were freed and ultimately completely freed from the ligament of Treitz to the terminal ileum. One area of was transversely approximated and repaired with interrupted 3-0 silk suture. The distal rectal segment was easily identified by long Prolene sutures that had been placed at time of initial operation. The rectal stump was without residual sigmoid and was quite viable. Small bowel adhesions to the staple line of the rectal stump were freed with sharp dissection freeing the small bowel completely. Using a Bookwalter retractor, the small bowel was retracted to the right side of the abdomen allowing for good visualization of the colostomy site. The colostomy site was transected with a VIKTOR stapling device. Electronically Signed By: KORI FLORES MD 01/05/22 0933 PATIENT NAME: LEONARDO ACOSTA OPERATIVE REPORT DATE OF : [birth year] REPORT #: [id number] PHYSICIAN: KORI FLORES MD PCP: SHAUNA YAO MD REPORT IS CONFIDENTIAL AND NOT TO BE RELEASED WITHOUT AUTHORIZATION [facility] [address], [place] [address] Signed Mobilization of the left colon including mobilization of splenic flexure was undertaken primarily with electrocautery dissection. Ultimately, the remaining left colon could be brought down to the pelvis in a tension-free manner to allow for anastomosis. The distal segment of descending colon was freed from adhesions as was the rectal stump area. Staple lines were completely free at this point. An end-to-end coloproctostomy was deemed most advisable given the anatomic matching size. A two layer technique of interrupted 3-0 silk suture was used to provide an end-to-end coloproctostomy. At conclusion of the anastomosis, both segments were quite viable and a tension-free anastomosis was accomplished. The left colonic mesentery was secured to the retroperitoneal layer with interrupted 2-0 silk to avoid transmesenteric herniation. Irrigation was undertaken and small bowel once again examined and replaced to the abdominal cavity. Attention was turned to the colostomy site. The transected colonic segment now lay in the subcutaneous space. The peritoneum and muscular layer were reapproximated with running #1 PDS suture. Attention was turned towards fascial closure. The midline fascia was closed with running #1 PDS suture in a bidirectional fashion after 1st placing a 7 mm flat Zack drain into the depths of the pelvis and securing with nylon suture. Copious irrigation of the abdomen had been undertaken with sterile saline. Once the midline fascia was closed, the subcutaneous tissue was copiously irrigated and given the obesity of his abdominal wall, the skin was reapproximated with a clip device. An Acticoat dressing was then applied to the midline incision. The Ioban drape were removed and attention was turned towards the colostomy remnant. An Allis clamp was applied to the mucosa of the colostomy site using electrocautery transection in the mucocutaneous junction undertaken with electrocautery and using circumferential dissection with electrocautery the colonic segment was freed from surrounding subcutaneous fat. Complete removal of the stump was undertaken. As the inner table of the abdominal wall had been closed, fascial reapproximation externally was undertaken additionally with interrupted 0 PDS suture. Irrigation was undertaken. Júnior layer was loosely reapproximated with interrupted 3-0 Vicryl. The skin was allowed to remain largely open for drainage. A single interrupted 3-0 Vicryl was used to secure the dermis. A sterile dressing was applied. The patient was allowed to emerge from anesthesia, extubated, and taken to the recovery room in good condition having suffered no known complications. The operation was prolonged, complicated, and difficult lasting more than 3 hours. Blood loss is estimated at 100 mL. Sponge, needle and instrument counts were reported correct x3. Electronically Signed By: KORI FLORES MD 01/05/22 1412 PATIENT NAME: LEONARDO ACOSTA OPERATIVE REPORT DATE OF : [birth year] REPORT #: [id number] PHYSICIAN: KORI FLORES MD PCP: SHAUNA YAO MD REPORT IS CONFIDENTIAL AND NOT TO BE RELEASED WITHOUT AUTHORIZATION [address] [address] Signed Kori Flores MD JM/MODL /[id number] cc: Shauna Yao MD Copies: ~ Electronically Signed By: KORI FLORES MD 01/05/22 1412 PATIENT NAME: LEONARDO ACOSTA OPERATIVE REPORT DATE OF : [birth year] REPORT #: [id number] PHYSICIAN: KORI FLORES MD PCP: SHAUNA YAO MD REPORT IS CONFIDENTIAL AND NOT TO BE RELEASED WITHOUT AUTHORIZATION
--- NOTE | 2022-01-05 15:10 | NUR ---
RN ROUNDING ON PT - FAMILY VISITING AT BEDSIDE, VIBHA LOPES DC'Flako AT THIS TIME FOR PRIVACY REASONS.
--- NOTE | 2022-01-05 16:08 | NUR ---
RN IN ROOM TO ADMINISTER PRN TORADOL PER PT REQUEST AND DC DUNNE CATH. PT RATES PAIN 5/10 DESPITE SCHEDULED TYLENOL. DUNNE DC'S WITHOUT COMPLICATIONS.
--- NOTE | 2022-01-05 17:48 | NUR ---
PT UP IN HALLWAY TO AMBULATE. TOLERATED WALKING LARGE LOOP AROUND MS FLOOR. BACK TO ROOM AND ABLE TO VOID 225 CLEAR YELLOW URINE IN URINAL POST DUNNE DC WITH OUT DIFFICULTY. PT BACK TO BED WITH FRESH ICE PACK. I/O COMPLETE.
--- NOTE | 2022-01-05 19:16 | NUR ---
shift report received from etta wills at bedside, pt awake and resting in bed. on ra, rr even and unlabored. midline acticaot wnl, old shadowing noted, serosanguineous in color. adeline drain to llq patent and dressing to left mid abd c/d/i, changed earlier today per shift report. iv site wnl, fluids infusing as directed. no additional needs, call light in reach.
--- NOTE | 2022-01-05 21:54 | NUR ---
IN ROOM FOR ASSESSMENT, THIS RN NOTED pt's BILATERAL FOREARMS REDDENED AND WARM TO THE TOUCH. pt AFEBRILE, DENIES SOB, DIFFICULTY SWALLOWING, CHEST PAIN. IV SITE WNL, FLUSHES EASILY. VSS. pt IS GETTING TORADOL AND HAS AN ALLERGY TO MOTRIN, PER pt, HE GETS "A RASH, BRAKES INTO HIVES, AND GETS SICK". SITE ALSO ASSESSED BY TECHNICAL ADMINISTRATIVE ASSISTANT BECKY. DR FLORES MADE AWARE AND TELEPHONE ORDERS READ BACK FOR PERCOCET 7.5MG-325MG 1-2 TABS PO PRN Q6H, 50MG PO BENADRYL X1 NOW AND TO DC IV TORADOL.
--- NOTE | 2022-01-05 22:03 | NUR ---
X1 DOSE 50MG PO BENADRYL GIVEN AT THIS TIEM, pt EDUCATED ON POC REGARDING PAIN MANAGEMENT AND EDUCATED ON DAILY TYLENOL CONSUMPTION. pt AGREES TO POC. CALL LIGHT INR EACH, WILL CONTINUE TO MONITOR.
--- NOTE | 2022-01-05 22:48 | NUR ---
rounded on pt, pt awake and resting in bed, denies needs or concerns. call light in reach. iv site wnl, fluids infusing as directed.
--- NOTE | 2022-01-06 | NUR ---
pt RESTING IN BED WITH EYES CLOSED, ON RA. RR EVEN AND UNLABORED. NO DISTRESS NOTED. LIGHTS TURNED OFF TO PROMOTE REST, CALL LIGHT IN REACH. NO DISTRESS NOTED.
--- NOTE | 2022-01-06 01:00 | NUR ---
PT continues to rest in bed with eyes closed, on ra. rr even and unlabored. iv site wnl, fluids infusing as directed. call light in reach.
--- NOTE | 2022-01-06 03:00 | NUR ---
assessment complete, no acute changes. iv site wnl, scheduled iv abx infusing as directed. pt reports tolerable 4/10 pain, denies need for pain medication. call light in reach. no new shadowing to abd dressing. pt denies nausea, bowel tones active. scd's in place.
--- NOTE | 2022-01-06 05:30 | NUR ---
IN TO ASSIST RN WITH VITALS, URINAL EMPTIED, FRESH ICE WATER GIVEN, NO FURTHER NEEDS AT THIS TIME
--- NOTE | 2022-01-06 05:36 | NUR ---
VSS AND I&O'S COMPLETE. FRESH WATER PROVIDED. TERESA DRAIN EMPTIED, 35MLS OUTPUT NOTED. SEROSANGUINEOUS IN COLOR. pt AMBULATED IN HALLWAY, WALKED TO EAST RN STATION AND MADE LOOP BACK TO ROOM, TOLERATED WELL. REPORTS PAIN 4/10, SCHEDULED TYLENOL GIVEN, SEE EMAR. IV SITE WNL, FLUIDS INFUSING DIRECTED. SCD'S IN PLACE AND CALL LIGHT IN REACH. FRESH ICE PACK PROVIDED. REDDNESS TO BILATERAL FOREARMS IMPRVED.
--- NOTE | 2022-01-06 08:57 | NUR ---
RN IN ROOM TO ASSESS PT AND ADMINISTER SCHEDULED MEDICATIONS. PT RESTING IN BED UPON ENTRY, WAKES EASILY. PT RATES PAIN 4/10 AND DENIES NEED FOR PRN PAIN MED AT THIS TIME. ACTIVE BOWEL TONES, PASSING GAS BUT NO BM YET. IV SITE WNL AND TOLERATING ABX INFUSION WITHOUT DIFFICULTY. RASH REPORTED FROM BALANCE SCREWHEAD POLISHER ON ARM RESOLVED. DRESSINGS INTACT, DISTENTION LESSENING POST OP. PT NOT INTERESTED IN BREAKFAST TRAY, "NOT HUNGRY". CALL LIGHT IN REACH.
--- NOTE | 2022-01-06 09:48 | NUR ---
RN IN ROOM TO ADMINISTER PRN PAIN MEDS UPON REQUEST OF PT. PAIN RATING 5/10 AT INCISION SITE. ENCOURAGED INCREASED FLUID INTAKE WITH ADMINISTRATION TO PREVENT UPSET STOMACH.
--- NOTE | 2022-01-06 10:34 | NUR ---
PT UP TO BATHROOM TO HAVE BM - SMALL LIQUID BROWN UNMEASURED. PT PROVIDED WARM WIPES AND FRESH GOWN AND REQUESTS TO DO BED BATH HIMSELF. CALL LIGHT IN REACH.
--- NOTE | 2022-01-06 11:52 | NUR ---
Pt up in chair watching phone, states pain is down to 4/10 after oral pain meds. Now on regular diet - excited to eat. IV saline locked. Pt agrees to shower and bandage change later.
--- NOTE | 2022-01-06 12:20 | NUR ---
PT AMBULATING IN HALLWAY INDEPENDENTLY.
--- NOTE | 2022-01-06 14:21 | NUR ---
RN ROUNDING ON PT - UP IN CHAIR RESTING. PT STATES FAMILY WILL BE IN SOON WITH LUNCH SO HE REQUESTS DRESSING CHANGE AND SHOWER LATER THIS AFTERNOON. PAIN ADEQUATLY COVERED WITH PERCOCET PREVIOUSLY ADMINISTERED.
--- NOTE | 2022-01-06 17:07 | NUR ---
PT BACK TO CHAIR FROM SHOWER - GAUZE REAPPLIED TO LEFT ABD WOUND, NO SIGN OF INFECTION - HEALING WELL. MOTHER AT BEDSIDE.
--- NOTE | 2022-01-06 19:20 | NUR ---
shift report received from etta wills at bedside. pt awake and resting in bed, on ra. rr even and unlabored, no distress noted. midline etienne with mckenna in place, site well approximated with no s/sx of infection noted. adeline patent, serosanguineous in color, scant output noted in bulb. board updated, call light in reach.
--- NOTE | 2022-01-06 21:38 | NUR ---
assessment complete, scheduled meds given (see emar). pt reports 4/10 pain, scheduled tylenol given. pt reports tenderness with iv site, positional as it is in the wrist and tender from bending. iv site saline locked and wnl. flushes easily. site redressed, no signs of infiltration noted. scant serosanguineous output in adeline drain. midline potato sorter with mckenna, well approximated. left abd dressing c/d/i. call light in reach and fresh ice pack provided.
--- NOTE | 2022-01-06 23:57 | NUR ---
ROUNDED ON pt, pt RESTING IN BED WITH EYES CLOSED. ON RA, RR EVEN AND UNLABORED. NO DISTRESS NOTED. CALL LIGHT IN REACH.
--- NOTE | 2022-01-07 01:20 | NUR ---
ROUNDED ON pt, pt RESTING QUIETLY IN BED WITH EYES CLOSED. ON RA, RR EVEN AND UNLABORED. NO DISTRESS NOTED. CALL LIGHT IN REACH, WILL CONTINUE TO MONITOR.
--- NOTE | 2022-01-07 03:05 | NUR ---
pt RESTING QUIETLY IN BED WITH EYES CLOSED, RR EVEN AND UNLABORED. NO DISTRESS NOTED. CALL LIGHT IN REACH. pt INDEPENDENT IN ROOM.
--- NOTE | 2022-01-07 04:25 | NUR ---
ASSESSMENT COMPLETE, NO ACUTE CAHNGES. PRN NOROCO X1 GIVEN FOR REPORTED 5/10 PAIN IN ABD, FRESH ICE PACK PROVIDED. VSS AND I&O'S COMPLETE. pt REPORTS RECENT BM ALONG WITH UNMEASURED VOID. TERESA DRAIN EMPTIED FOR 30MLS, SEROSANGUINEOUS IN COLOR. CALL LIGHT IN REACH.
--- NOTE | 2022-01-07 06:15 | NUR ---
ROUNDED ON pt, pt RESTING IN BED WITH EYES CLOSED ON RA. RR EVEN AND UNLABORED, NO DISTRESS NOTED. CALL LIGHT IN REACH.
--- NOTE | 2022-01-07 07:10 | NUR ---
bedside report from shift superintendent caustic cresylate, pt eyes closed, resp even, call light in reach - did not awaken.
--- NOTE | 2022-01-07 09:02 | NUR ---
pt up in , drained 20 ml of serous drainage from left adeline. midline ins wnl - mckenna well approximated. pt given 1 po norco with food for 5/10 abd pain. pt refused hospital food - given 1/2 sand from home and a boost with ice. pt is anxious to go home, re assured he is doing well and that would be in today to see him. pt up in room in .
--- NOTE | 2022-01-07 10:59 | NUR ---
Dr. macdonald here to assess pt. plan for nd home.
[2022-01-07] MEDS ORDERED: HYDROCODON-ACE1 EA10 PO (11:21)
[2022-01-07] MEDS ORDERED: NICOTINE1 EAC2 TD (11:21)
[2022-01-07] MEDS ORDERED: ACETAMINOPHEN500 MG PO (11:22)
--- NOTE | 2022-01-12 14:40 | DS ---
[facility] [address], [place] [address] Signed ADMISSION DATE: 01/04/2022 DISCHARGE DATE: 01/07/2022 REASON FOR ADMISSION: Takedown of colostomy. HISTORY OF PRESENT ILLNESS: This 31-year-old white man was admitted through the emergency room several months ago with left-sided abdominal pain and findings consistent severe acute diverticulitis with peridiverticular abscess. He had no evidence of generalized free air. On July 21, 2021, he underwent laparoscopy with attempted peritoneal lavage and placement of drain. Dense interloop adhesions were noted and adherent fibrinous peel, for which laparoscopic approach was unsuccessful. On July 25, he underwent laparotomy with sigmoid resection and end colostomy with Santi's pouch. He has recovered fully from that problem and is now here to undergo takedown of the colostomy to include partial colectomy and coloproctostomy. He understands the risks of bleeding, infection, recurrence, and other unforeseen complications related to this operation, wished to proceed. PHYSICAL EXAMINATION: GENERAL: Obese white man, who looks to be in no severe distress. NECK: Trachea is midline. CHEST: Clear. HEART: Regular without murmur. ABDOMEN: With a healed midline incision and a viable well-functioning colostomy in the left mid abdomen. HOSPITAL COURSE: The patient underwent bowel prep at home including oral antibiotics. On January 04, 2022, he underwent operation, which included exploration of the abdomen with extensive lysis of adhesions of small bowel and takedown of left end colostomy with partial colectomy and end-to-end coloproctostomy. The operation was prolonged, complicated, and difficult. Splenic flexure mobilization was undertaken as well. Postoperatively, he was maintained with a Rush catheter and a drain in the pelvis. The ostomy site was managed in a semi-open way with gauze dressing changes. He had progressive improvement, tells me he was tolerating a liquid diet and eventually a full and regular diet without problem. He had bowel function as manifested by bowel movements. The drain was removed as was a Rush catheter and by day of discharge, he is Electronically Signed By: KORI FLORES MD 01/12/22 1440 PATIENT NAME: LEONARDO ACOSTA DISCHARGE SUMMARY DATE OF : [birth year] REPORT #: [id number] PHYSICIAN: KORI FLORES MD PCP: PANTERA YAO MD REPORT IS CONFIDENTIAL AND NOT TO BE RELEASED WITHOUT AUTHORIZATION [facility] [address], [place] [address] Signed ambulating well, tolerating a regular diet, has normal bowel function and the midline incision is healing well with clips in place and the ostomy site myah down and healing as well. He was instructed at discharge to avoid lifting more than 20 pounds for the next 4 weeks. He should shower on a daily basis and allow water to contact the incision and the former ostomy site. DISCHARGE MEDICATIONS: 1. Nicotine patch 21 mg daily #30, refill 3. 2. Vicodin 5/325 one to two p.o. q.6 hours as needed for pain #10. 3. Tylenol plain 500 mg two tablets p.o. q.6 hours p.r.n. lesser pain #60. DISCHARGE DIAGNOSES: 1. History of perforated diverticulitis with abscess July 2021, status post laparoscopic lavage and placement of drain, subsequent open sigmoid colectomy and colostomy and Santi's pouch. 2. Takedown of colostomy including partial colectomy with end-to-end coloproctostomy on January 04, 2022. 3. Obesity. 4. Smoker. Kori Flores MD /MODL /[id number] cc: Dr. Kori Yao MD Copies: KORI FLORES MD ~ Electronically Signed By: KORI FLORES MD 01/12/22 1440 PATIENT NAME: LEONARDO ACOSTA DISCHARGE SUMMARY DATE OF : [birth year] REPORT #: [id number] PHYSICIAN: KORI FLORES MD PCP: PANTERA YAO MD REPORT IS CONFIDENTIAL AND NOT TO BE RELEASED WITHOUT AUTHORIZATION
== END 2022-01-07 11:55 | disposition home or self-care (01) | DRG 331 ==
LOC: DSVR 01-04 05:35 → MS 01-04 07:30
PROVIDERS: ADMIT Surgery; ATTEND Surgery
PROC: 0D1E0ZP Bypass Large Intestine to Rectum, Open Approach (ICD-10-PCS; 2022-01-04)
PROC: 0DN80ZZ Release Small Intestine, Open Approach (ICD-10-PCS; 2022-01-04)
PROC: 0DBE0ZZ Excision of Large Intestine, Open Approach (ICD-10-PCS; principal; 2022-01-04 07:30)
DX: Z43.3 Encounter for attention to colostomy (principal); E66.9 Obesity, unspecified; F17.210 Nicotine dependence, cigarettes, uncomplicated; Z90.49 Acquired absence of other specified parts of digestive tract; Z88.8 Allergy status to other drugs, medicaments and biological substances; Z68.30 Body mass index [BMI] 30.0-30.9, adult; K66.0 Peritoneal adhesions (postprocedural) (postinfection)
CPT/HCPCS: 00840; 36415; 80053; 85025; A9270; J0131; J0690; J0694; J1100; J1170; J1644; J1790; J1885; J2001; J2250; J2270; J2405; J2704; J3010; J7121; Q0163